=== PATIENT | female | born 1935 | race Caucasian/White ===

== ENCOUNTER → 2017-06-18 | Outpatient (CLI) | payer OTHER ==
[~2017-06-18] MED LIST: 'zithromax250 MG PO; ABILIFY5 MG PO; ACYCLOVIR400 MG PO; ADVAIR 100/501 E1 INH; ADVAIR 250/501 EA INH; ADVAIR 500/501 E1 INH; ADVAIR DISKUS 21 DSK IH; ALPHA LIPOIC A200 MG PO; ALPRAZOLAM0.5 MG PO; AMBIEN; AMBIEN10 M1 PO; AMBIEN5 MG PO; APA PO; ARICEPT10 MG PO; ARICEPT5 MG PO; ATENOLOL25 MG PO; ATIVAN0.5 MG PO; AVAPRO300 MG PO; AZITHROMYCIN500 MG PO; BACTRIM DS 8001 TA1 PO; BACTROBAN2% TP; CARDIZEM CD240 MG PO; CARDIZEM LA240 MG PO; CARTIA XT240 MG PO; CEFTRIAXON1 GM/50 ML IV; CELEBREX200 MG; CELEBREX200 MG PO; CIPRO500 MG PO; CIPROFLOXACIN500 MG PO; CLARITIN10 MG PO; CLONIDINE0.1 MG PO; COLACE100 MG PO; COREG25 MG PO; CYMBALTA30 MG PO; CYMBALTA60 MG PO; DARVOCET N 1001 TAB PO; DAYPRO600 M1 PO; DELTASONE10 MG PO; DELTASONE5 MG PO; DESYREL100 MG PO; DILTIAZEM HYDR180 M2 PO; DONEPEZIL HYDRO10 MG PO; DUONEB 3 MG/3 ML3 M1; DUONEB 3 MG/3 ML3 M1 INH; Duoneb 3ML 3 MG/3 ML INH; FIORICET 325 MG1 TAB; FIORICET 325 MG1 TAB PO; FISH OIL 10001000 MG PO; FLEET ADULT ENEM1 EA R; FLONASE 0.05% 121 EA NAS; FUROSEMIDE40 MG PO; HCA STOOL SOFT100 MG PO; HYDROCHLOROTH12.5 M2 PO; HYDROCODONE BIT1 T11 PO; HYDROCODONE PO; IMITREX50 MG PO; K-Dur 20MEQ20 MEQ PO; K-POTASSIUM CH20 MEQ PO; KCL PO; KLONOPIN0.5 MG PO; KLOR-CON 1010 MEQ PO; LACTULOSE10 GM/15 M PO; LASIX20 MG PO; LEVAQUIN 500 M500 M1 PO; LISINOPRIL/HCTZ1 TA3 PO; LISINOPRIL20 MG PO; LISINOPRIL5 MG PO; LOVENOX30 MG/0.3 SC; Lovenox40 MG/0.4 SC; MAXIPIME1 GM IV; MELOXICAM15 MG PO; METHYLPREDNI40 MG/M1 IV; MILK OF MA400 MG/52 PO; MIRALAX17 GM/PACK; MIRALAX17 GM/PACK PO; MOBIC15 MG PO; MUCINEX D 600 M1 TE1 PO; MUCINEX DM 30/61 TAB PO; MUCINEX600 MG PO; MULTI-VITAMINS1 TA1 PO; Medrol Dosepak4 MG PO; NASONEX0.05 MG/AC NS; NORVASC5 MG PO; OCEAN NASAL SPR45 ML NAS; OMEPRAZOLE20 MG PO; POTASSIUM CHLO20 ME3 PO; PREDNISONE10 MG PO; PREDNISONE5 MG; PRILOSEC20 M2 PO; PRILOSEC20 MG PO; PRILOSEC40 MG PO; PRINIVIL20 MG PO; PROAIR HFA8.5 GM IH; PT DOESN'T KNOW MEDS; SINEMET 10-1001 TAB PO; SINGULAIR10 M1 PO; SINGULAIR10 MG PO; SOLU-MEDROL40 MG IV; SPIRIVA -- 3018 MCG INH; SYMBICORT1 AE1 INH; SYNTHROID,LEVO75 MCG PO; SYNTHROID,LEVO88 MCG PO; SYNTHROID0.075 MG PO; SYNTHROID0.1 MG PO; TEMAZEPAM15 MG PO; TRAMADOL50 MG PO; TRAZODONE150 MG PO; TRAZODONE50 MG PO; TYLENOL PO; TYLENOL325 M1 PO; TYLENOL325 M2 PO; TYLENOL650 M1 PO; VICODIN 5/500 505 MG PO; VISTARIL25 M2 PO; VITAMIN D32000 I1 PO; VITAMIN D50000 I1 PO; Vicodin 5/500 505 MG PO; XANAX XR0.5 MG PO; XANAX0.5 MG PO; ZESTRIL10 MG PO; ZESTRIL30 MG; ZITHROMAX Z PA250 MG PO; ZITHROMAX250 MG PO; ZOFRAN4 MG PO; ZOLOFT25 MG PO; [UNRECOGNIZED DRUG - OTHER] PO; [UNRECOGNIZED DRUG - OTHER] PO
== END | disposition home or self-care (01) ==
LOC: MRI 09:57
DX: M41.86 Other forms of scoliosis, lumbar region (principal); M48.07 Spinal stenosis, lumbosacral region; M51.26 Other intervertebral disc displacement, lumbar region; I10 Essential (primary) hypertension; M81.8 Other osteoporosis without current pathological fracture; F03.90 Unspecified dementia, unspecified severity, without behavioral disturbance, psychotic disturbance, mood disturbance, and anxiety; M19.90 Unspecified osteoarthritis, unspecified site

== ENCOUNTER 2017-10-29 10:10 | Inpatient (IN) | payer OTHER ==
[~2017-10-29] VITALS: Ht 157.4 cm; Wt 83.0 kg
--- NOTE | ~2017-10-29 | PR ---
[place], [place] PROGRESS NOTE [id number] UN[facility] #: [id number] ROOM: 404 DOCTOR: DK MUSA MD,JEANA BIRTHDATE: [birth year] DOS: 11/03/2017 SUBJECTIVE: She has been noted comfortable at this time, resting in the bed this morning of assessment. Shortness of breath has been noted gradually decreased. She was continued the corticosteroid as 40 mg q. 8 hours. The shortness of breath, wheezing continued to resolve progressively. Denies symptoms of chest pain. OBJECTIVE: VITAL SIGNS: For the patient which has been recorded shows the temperature noted as normal temperature, respiratory rate 20, heart rate 74, blood pressure 144/82. The pulse oxygen saturation on room air 97% saturation. HEENT: No acute change. NECK: Supple. CARDIOVASCULAR: S1, S2 audible. LUNGS: The patient noted without any wheezing or crackles at this time. Breaths are noted mildly diminished bilaterally. ABDOMEN: Soft, nontender. LABORATORY DATA: Culture of the sputum pending. IMPRESSION: The patient who has been currently noted with gradual reduction and improvement in the respiratory symptom. The patient with progressive improvement in acute exacerbation of chronic obstructive pulmonary disease and acute bronchitis was continued. PLAN OF TREATMENT: Continue the patient's current plan of therapy. The patient at this time without any changes. Usual care, ordered supportive plan of therapy and care. Usual medical management. JEANA ROOT MD CM:PNTRANS [id number] JEANA MUSA MD 11/03/17 1759 interface
--- NOTE | ~2017-10-29 | WRIGHTHP ---
[place], [place] PATIENT HISTORY AND PHYSICAL EXAM NAME: ABILIO DISLA [facility] #: [id number] UNIT #: [id number] ROOM: 404 DOCTOR: OLEG CISNEROS MD BIRTHDATE: [birth year] DOS: 10/29/2017 HISTORY OF PRESENT ILLNESS: The patient is an 82-year-old female with a past medical history of: 1. COPD. 2. Late onset Alzheimer's type dementia. 3. Hypertension. 4. Hypothyroidism. 5. GERD and esophagitis. 6. Generalized anxiety disorder. The patient presented to the Emergency Department at [facility] with increasing shortness of breath, cough and purulent sputum for about a week. The patient was diagnosed as having acute exacerbation of COPD along with acute kidney injury and recommended for admission and further management. After admission, the patient is still complaining of shortness of breath and some wheezing. No chest pain. No dizziness or fainting episode. No other GI or urinary symptoms. REVIEW OF SYSTEMS: LUNGS: Increased shortness of breath, wheezing. GASTROINTESTINAL: No nausea, vomiting, diarrhea or constipation. CARDIOVASCULAR: No chest pains or palpitations. FAMILY HISTORY: Noncontributory. SOCIAL HISTORY: Denies smoking cigarettes, alcohol and drug abuse. ALLERGIES: Known allergies to AZITHROMYCIN. PHYSICAL EXAMINATION: GENERAL: Alert, oriented to place and person, not a good historian. VITAL SIGNS: Blood pressure 165/80, heart rate 64 beats per minute, breathing 16 times per minute, temperature 99 degrees Fahrenheit. HEENT AND NECK: Extraocular movements are intact. Sclerae are anicteric. Oral mucosa is moist and clean. No obvious facial weakness. Neck is supple without any lymphadenopathy. No thyromegaly. No JVD. No carotid arterial bruits. LUNGS: Expiratory wheezing on lung auscultation. CARDIOVASCULAR SYSTEM: Heart rate is regular in rate and rhythm. S1 and S2 normally audible. No significant murmur or any other abnormal cardiac sounds. ABDOMEN: Soft, nontender. No obvious organomegaly. Bowel sounds are present. No obvious herniation. EXTREMITIES: Without significant cyanosis or edema. Warm to touch. CENTRAL NERVOUS SYSTEM: Alert and oriented x 3. Cranial nerves II-XII are intact. Speech is normal. The patient is able to move all extremities. Normal muscle strength. Deep tendon reflexes are equal on both sides. Plantars were downgoing. LABORATORY DATA: Normal serum electrolytes. Blood sugar 149. Hemoglobin 9, otherwise normal CBC, normal platelets. Normal bilirubin, liver enzymes. Chest [place], [place] PATIENT HISTORY AND PHYSICAL EXAM NAME: ABILIO DISLA [facility] #: [id number] UNIT #: [id number] ROOM: [facility] DOCTOR: OLEG CISNEROS MD BIRTHDATE: [birth year] x-ray is showing COPD. IMPRESSION: 1. The patient with acute exacerbation of significant underlying chronic obstructive pulmonary disease, to be treated with antibiotics, oxygen, corticosteroids and followed closely. The patient is on oxygen and being monitored. 2. Hemoglobin of 10.6 with anemia of chronic disease. No leukocytosis. 3. Generalized anxiety disorder, to be treated and controlled. 4. Late onset Alzheimer's type dementia, mental status has been stable. 5. Benign essential hypertension. Blood pressure is to be monitored, treated and followed. 6. Hypothyroidism, to be treated with thyroid supplements. 7. Advance disability and adult failure to thrive with ambulatory dysfunction. The patient to work with Physical Therapy and we will take bedsore precautions, use air mattress and every 2 hour turning. OLEG CISNEROS MD CM:HISPHYS:PATIENT HISTORY AND PHYSICAL EXAMINATION 19 [phone] OLEG CISNEROS MD 10/30/17 183 interface
--- NOTE | ~2017-10-29 | CON ---
[place], [place] REPORT OF CONSULTATION [id number] UNIT #: [id number] ROOM: 404 DOCTOR: JÚNIOR WHITLOCK MD BIRTHDATE: [birth year] DOS: 11/02/2017 HISTORY OF PRESENT ILLNESS: This is an 82-year-old -[place] woman who has mild dementia, COPD, although she only smokes sparingly, essential hypertension. The left ventricle hypertrophy by an echocardiogram, TIA, hypothyroidism, and some anxiety disorder. She was admitted to the hospital about 4 days ago because of increasing shortness of breath. She had been coughing up purulent sputum. She had some chest pain with cough, but no fever or chills. She was very short of breath and the breathing has improved markedly since admission. She claims she had swelling in the legs and no PND, orthopnea, or loss of consciousness. CURRENT MEDICATIONS: Include bronchodilator therapy, lisinopril, hydrochlorothiazide, Cardizem-CD 180, Synthroid, trazodone, atenolol, Solu-Medrol, and lisinopril. PHYSICAL EXAMINATION: GENERAL: This patient is morbidly obese, lying in bed, very comfortable. She is not tachypneic and there is no thyromegaly or finger clubbing. VITAL SIGNS: Pulse is irregular at 80 beats per minute, blood pressure 173/84, blood pressure has been modestly elevated since admission. NECK: JVP is normal. AJR is negative. No bruit in the neck. HEART: There is no cardiomegaly, no murmurs are present. EXTREMITIES: Good pedal pulses and no pitting edema of the lower extremities. RESPIRATORY: Breath sounds are fairly decent bilaterally with very little adventitious sounds. ABDOMEN: No bruits. Bowel sounds are normal. There is no organomegaly or pulsatile mass. LABORATORY DATA: An ECG showed normal sinus rhythm and essentially a normal pattern. She had an echocardiogram in December of last year read by Dr. Acevedo. I read an echo on her in July 2011. She had mild to moderate LVH, normal LV systolic function. Chest x-ray demonstrates COPD changes, but no pulmonary edema or pneumonia. She had 7 beat monomorphic ventricular tachycardia at a rate of about 140 beats per minute and no recurrence has occurred. Her potassium was fine. She had an echocardiogram that had shown normal wall motion last year. I do not suspect any serious underlying etiology for this nonsustained monomorphic ventricular tachycardia. Further workup is not recommended. She had an echocardiogram today and I will review that. IMPRESSION: 1. This patient has hypertension, which is not adequately controlled. 2. She had COPD exacerbation due to acute chest infection, which has improved significantly. [place], [place] REPORT OF CONSULTATION NAME: ABILIO DISLA UNIT #: [id number] ROOM: 404 DOCTOR: JÚNIOR WHITLOCK MD BIRTHDATE: [birth year] 3. There is no clinical or radiographic evidence of heart failure. PLAN: My recommendation would be to discontinue atenolol since she is on a fair amount of Cardizem dose, dose of LIZ inhibitor can be increased. I thank you on behalf of Dr. Murdock for this consult. JÚNIOR WHITLOCK MD CM:CONSTR:REPORT OF CONSULTATION 1812 11/03/17 0336 interface
--- NOTE | ~2017-10-29 | PR ---
[place], [place] PROGRESS NOTE NAME: ABILIO DISLA [facility] #: [id number] UNIT #: [id number] ROOM: 404 DOCTOR: DK MUSA MD,JEANA BIRTHDATE: [birth year] DOS: 11/02/2017 SUBJECTIVE: She has been noted reduction in respiratory symptom, coughing, wheezing from the last have progressed. The patient's steroid dose was increased. She has been noted symptoms of shortness of breath, which is still present, not completely resolved but decreased. She denies symptoms of abdominal pain. Denies symptoms of nausea, vomiting, diarrhea or any abdominal pain. OBJECTIVE: VITAL SIGNS: Recorded shows the temperature noted as normal, respiratory rate 18, heart rate of 65 to 110, blood pressure 116/46 to 118/78. Pulse oxygen saturation on 2 liters nasal cannula 96% saturation. HEENT: Shows no acute change. NECK: Supple. CARDIOVASCULAR: S1 and S2 audible. LUNGS: Noted without any crackles. Mild expiratory wheezing with significant improvement noted from yesterday. ABDOMEN: Soft, nontender, bowel sounds present. CENTRAL NERVOUS SYSTEM: Noted without any gross focal deficit. IMPRESSION: Resolving acute exacerbation of chronic obstructive pulmonary disease with acute tracheobronchitis with current plan of treatment. PLAN OF TREATMENT: The patient was planned for discharge to the correction. The patient required high dose of steroids and an antibiotic as well as bronchodilators every 4 hours. Other supportive therapy, plan of management continue, usual care. JEANA ROOT MD CM:PNKEN [id number] JEANA MUSA MD 11/02/17 2327 interface
--- NOTE | ~2017-10-29 | PR ---
[place], [place] PROGRESS NOTE NAME: ABILIO DISLA UNIT #: [id number] ROOM: 404 DOCTOR: OLEG CISNEROS MD BIRTHDATE: [birth year] DOS: SUBJECTIVE: The patient still continues to complain of shortness of breath. PHYSICAL EXAMINATION: VITAL SIGNS: Blood pressure 147/75, heart rate of 68 beats per minute, breathing 18 times per minute, afebrile. GENERAL APPEARANCE: The patient is alert and oriented x 3, in no visible distress, except for obesity, generalized weakness. HEENT AND NECK: Exam within normal limits. CARDIOVASCULAR SYSTEM: Heart rate is regular in rate and rhythm. S1 and S2 normally audible. LUNGS: Expiratory wheezing on lung auscultation. ABDOMEN: Soft, nontender. No obvious organomegaly. Bowel sounds are present. EXTREMITIES: Without significant cyanosis or edema. IMPRESSION AND PLAN: 1. The patient with acute exacerbation of significant underlying chronic obstructive pulmonary disease with little improvement with treatment. The patient to be continued on oxygen and bronchodilators and I am consulting Dr. Blandon, the laborer car [employer] to evaluate her and help with management. 2. Generalized anxiety disorder, being treated and followed. 3. Late onset Alzheimer's type dementia, mental status stable. 4. Benign essential hypertension. Blood pressure being monitored, treated and controlled. 5. Advance disability and adult failure to thrive with ambulatory dysfunction. The patient is working with Physical Therapy. We are also taking bedsore precautions and turning her every 2 hours and using an air mattress. 6. Hypothyroidism, treated with thyroid supplements. OLEG CISNEROS MD CM:PNTRANS [phone] OLEG CISNEROS MD 10/31/172156 interface
--- NOTE | ~2017-10-29 | DS ---
[place], [place] DISCHARGE SUMMARY [id number] #: [id number] ROOM: 404 DOCTOR: OLEG CISNEROS MD BIRTHDATE: [birth year] DOS: 11/03/2017 DISCHARGE DIAGNOSES: 1. Acute exacerbation of significant underlying chronic obstructive pulmonary disease and acute tracheobronchitis, improved with treatment. 2. A ____ beat run of ventricular tachycardia, evaluated by compensation and benefits administrator, Dr. Mendez. 3. Benign essential hypertension. 4. Advanced adult failure to thrive. 5. Hypokalemia, resolved with extra potassium supplements. 6. Hypothyroidism. 7. Late onset Alzheimer's type dementia. 8. Generalized anxiety disorder. 9. Chronic obstructive pulmonary disease. 10. Gastroesophageal reflux disease and esophagitis. 11. Hypertension. The patient was admitted for increased shortness of breath, cough with purulent sputum for about a week at the skilled nursing. The patient was found to have acute exacerbation of COPD and she was admitted and treated with antibiotics, corticosteroids, oxygen, breathing treatments and her breathing improved gradually. Dr. Blandon, the council on aging director, was also consulted since she had very slow improvement in her breathing. The patient appears to have achieved maximal benefit from this admission and will be discharged back to skilled nursing today. The patient had a ____ beat run of monomorphic V-tach, which was evaluated by compensation and benefits administrator and no further workup was recommended. Advance disability and adult failure to thrive. The patient worked with Physical Therapy. Late onset Alzheimer's type dementia, remained stable. Hypothyroidism, treated with thyroid supplements. Anemia of chronic disease. Hypokalemia, treated with extra potassium supplements. LABORATORY DATA: Normal serum electrolytes. Sputum cultures are pending. Blood cultures were negative. DISCHARGE MANAGEMENT: Prednisone 5 mg a day, lisinopril 20 mg daily, DuoNeb every 4 hours as needed, Pulmicort 0.5 mg b.i.d., Singulair 10 mg daily, loratadine 10 mg daily, potassium chloride 20 mEq daily, Zoloft 50 mg a day, hydrochlorothiazide 12.5 mg daily, Colace 200 mg b.i.d., diltiazem CD 180 mg daily, levothyroxine 100 mcg daily, trazodone 100 mg at bedtime, atenolol 25 mg b.i.d., doxycycline 100 mg b.i.d. for 5 days, then to be stopped, buspirone 5 mg every 8 hours, Medrol Dosepak. [place], [place] DISCHARGE SUMMARY NAME: ABILIO DISLA UNIT #: [id number] ROOM: [facility] DOCTOR: OLEG CISNEROS MD BIRTHDATE: [birth year] OLEG CISNEROS MD CM:DISCHARG [id number] OLEG CISNEROS MD 11/05/17 1543 interface
--- NOTE | ~2017-10-29 | PR ---
[place], [place] PROGRESS NOTE NAME: ABILIO DISLA [facility] #: [id number] UNIT #: [id number] ROOM: 404 DOCTOR: SHRUTHI EPPS MD BIRTHDATE: [birth year] DOS: SUBJECTIVE: The patient is not having any new complaints. She feels better. OBJECTIVE: VITAL SIGNS: Blood pressure is 168/80, pulse of 76, respirations 20, temperature 97.6. LUNGS: Clear. HEART: Regular. ABDOMEN: Obese. EXTREMITIES: Without any edema. LABORATORY DATA: BMP; glucose 162, BUN 18, creatinine 0.2, magnesium 2.1, potassium 3.9. Blood culture shows no bacterial growth. ASSESSMENT AND PLAN: 1. Acute exacerbation of chronic obstructive pulmonary disease. The patient is placed on IV steroids and antibiotics. Steroid dosage is increased and DuoNeb and Pulmicort was added. This seems to have helped the patient. The bronchospasm seems to be resolving. 2. Failure to thrive, adult. The patient lives in a intermediate. The plan is to discharge her back. 3. Possible sepsis, which has been ruled out with negative cultures. 4. A 7 beat run of V-tach during the night. Magnesium and potassium levels were normal. We will get a cardiology consultation. She had an echocardiogram in 2015 which showed concentric LVH and diastolic dysfunction. 5. Benign hypertension, not very well controlled. We will go ahead and arrange for better adjustments in medications as well as a consultation with cardiology. SHRUTHI EPPS MD CM:PNTRANS [phone] SHRUTHI EPPS MD 11/02/17 1020 interface
--- NOTE | ~2017-10-29 | CON ---
[place], [place] REPORT OF CONSULTATION NAME: ABILIO DISLA UNIT #: [id number] ROOM: 404 DOCTOR: JÚNIOR WHITLOCK MD BIRTHDATE: [birth year] DOS: ADDENDUM She had 7 beat monomorphic ventricular tachycardia at a rate of about 140 beats per minute and no recurrence has occurred. Her potassium was fine. She had an echocardiogram that had shown normal wall motion last year. I do not suspect any serious underlying etiology for this nonsustained monomorphic ventricular tachycardia. Further workup is not recommended. She had an echocardiogram today and I will review that. JÚNIOR WHITLOCK MD CM:CONSTR:REPORT OF CONSULTATION 1816 11/03/17 0025 interface
--- NOTE | ~2017-10-29 | PR ---
[place], [place] PROGRESS NOTE NAME: ABILIO DISLA [facility] #: [id number] UNIT #: [id number] ROOM: 404 DOCTOR: SHRUTHI EPPS MD BIRTHDATE: [birth year] DOS: 11/01/2017 SUBJECTIVE: The patient has significant audible wheezing. She is able to communicate well, but appears to be in some mild respiratory distress. OBJECTIVE EXAMINATION: GENERAL: She is awake and alert and oriented. VITAL SIGNS: Blood pressure is 182/77, pulse of 55, respirations 18, temperature 97.5. LUNGS: Diminished breath sounds, scattered wheezes and rhonchi. HEART: Regular. ABDOMEN: Obese. EXTREMITIES: Without any edema. ASSESSMENT AND PLAN: 1. Acute exacerbation of chronic obstructive pulmonary disease. The patient is on IV steroids. We will increase the dose of steroids and add Pulmicort, discontinue IV fluids. 2. Hypokalemia. Supplementation has been ordered. 3. Acute tracheobronchitis with significant bronchospasm. Already on Rocephin. Dr. Blandon has been consulted for possible bronchoscopy. SHRUTHI EPPS MD CM:PNTRANS [phone] SHRUTHI EPPS MD 11/01/17 0850 interface
--- NOTE | ~2017-10-29 | CON ---
[place], [place] REPORT OF CONSULTATION NAME: [facility]ILIO DISLA [facility]: [id number] UNIT #: [id number] ROOM: 404 DOCTOR: JEANA RAY MD BIRTHDATE: [birth year] DOS: 11/01/2017 PULMONARY CONSULTATION AND EVALUATION NOTE CONSULTATION REQUESTED BY: by Dr. Buckley. REASON FOR CONSULTATION: To assess the patient for ongoing acute respiratory complaints with coughing, wheezing, and exacerbation of COPD. HISTORY OF PRESENT ILLNESS: This is an 82-year-old elderly female with history of dementia, COPD, who currently stays at [facility], long-term resident. The patient developed symptoms of having increased shortness of breath, coughing, sputum expectoration, and others. The patient has been treated at the [facility] with the medication by Dr. Buckley, but not responded to the treatment. She has been sent to the hospital for further hospitalization because of the failed outpatient treatment. The patient's history was not noted very accurate because of the history of dementia; however, the patient is complaining of having severe coughing, chest congestion with some sputum expectoration at times. Most of the time, the patient was noted with no sputum expectoration. She was noted with excessive wheezing with tightness in the chest as well as shortness of breath with exertion. The shortness of breath is described at rest as well. Denies symptoms of hemoptysis. REVIEW OF SYSTEMS: Not very accurate; however, some of the symptom review of the patient were noted as: CONSTITUTIONAL: Fatigue and tiredness. There were no symptoms of fever or chills. Denies any changes in appetite. EYES: Denies any burning, redness in the eyes, or dryness. THROAT: Denies sore throat, hoarseness, otalgia, postnasal drainage, or epistaxis. CARDIOVASCULAR: Denies any palpitations, angina pain, edema, or pain of the lower extremities. GASTROINTESTINAL: Denies nausea, vomiting, diarrhea, abdominal pain, hematemesis, melena, or hematochezia. MUSCULOSKELETAL: Denies any abnormal skin rashes or lesions. CENTRAL NERVOUS SYSTEM: Denies any symptoms of arthralgia for this patient or deformity. Denies any symptoms of seizures. Remaining systems were also reviewed for the patient, they were noted essentially negative. PAST MEDICAL HISTORY: The patient was noted with: 1. History of chronic obstructive pulmonary disease. 2. Essential hypertension. 3. General anxiety disorder. 4. TIA. 5. Hypothyroidism. 6. Gastroesophageal reflux. 7. Osteoarthritis. 8. Osteoporosis. 9. History of Alzheimer dementia. [place], [place] REPORT OF CONSULTATION NAME: ABILIO DISLA UNIT #: [id number] ROOM: 404 DOCTOR: DK MUSA MD,JEANA BIRTHDATE: [birth year] PAST SURGICAL HISTORY: 1. Colonoscopy. 2. . 3. Tubal ligation. 4. T and A. 5. Therapeutic bronchoscopies, the last bronchoscopy was done in 2016. SOCIAL HISTORY: Currently a long-term resident of nursing facility. She was noted with tobacco use in the past for some time, but not smoking cigarettes for several years. The patient is and has 2 children. FAMILY HISTORY: The patient's father at age 84 years due to complication of Alzheimer disease and COPD, History about the mother was unknown. MEDICATIONS: The current administered medications noted with use of DuoNeb q.4h., Pulmicort Respules 0.5 mg b.i.d., Singulair 10 mg p.o. daily, loratadine 10 mg daily, potassium chloride 20 mEq, sertraline 50 mg daily, lisinopril 10 mg daily, hydrochlorothiazide 12.5 mg daily, Cardizem-CD 180 mg daily, Synthroid 100 mcg daily, trazodone 100 mg at bedtime, atenolol 25 mg b.i.d., Solu-Medrol 30 mg b.i.d., IV Rocephin, and other p.r.n. medication administration. DRUG ALLERGIES: NOTED ALLERGY TO AZITHROMYCIN. PHYSICAL EXAMINATION: GENERAL: This is an 82-year-old white female, currently noted without any distress with obvious wheezing, chest congestion was noted. Height of the patient recorded as 5 feet 2 inches, weight 183 pounds, BMI 33.5. VITAL SIGNS: Normal temperature since admission, respiratory rate 18-20, heart rate of 55-64, blood pressure of 182/77-171/79. Pulse oxygen saturation on room air was 92% saturation. HEENT: Head was atraumatic. Eyes nonicterus. NECK: Supple. CARDIOVASCULAR: S1, S2 audible. LUNGS: Shows moderate general reduction in breath sounds, diffuse expiratory wheezing without any crackles. ABDOMEN: Soft, nontender. Bowel sounds present. CENTRAL NERVOUS SYSTEM: Intact for the patient in general. SKIN: Visible skin, no lesions or rashes. MUSCULOSKELETAL: Without any acute deformities. LABORATORY DATA: The patient's CBC on 10/29/2017, on admission noted as hemoglobin 10.6, hematocrit 35.9, platelet count and WBC count normal. Lactic acid 2.1 on admission of the patient on 10/29/2017. BMP on 10/29/2017, BUN of 16, creatinine 1.05, glucose 112, remaining CMP was normal. Influenza A and B, nasal washing antigen negative on admission. Blood culture of the patient from 10/29/2017 showed no bacterial growth. BMP today noted normal BUN and creatinine. Potassium 3.1, mildly decreased. PT/PTT of the patient on 10/29/2017 was normal. [place], [place] REPORT OF CONSULTATION NAME: ABILIO DISLA UNIT #: [id number] ROOM: [facility] DOCTOR: JEANA RAY MD BIRTHDATE: [birth year] IMAGING STUDIES: Chest x-ray, 1 view done in the Emergency Room for the patient on 10/29/2017 noted with changes of COPD, hyperinflation, without any acute pulmonary infiltration. IMPRESSION: 1. The patient who has been admitted to the hospital currently noted with persistent acute exacerbation of chronic obstructive pulmonary disease with chest congestion, nonproductive cough, and wheezing. 2. History of Alzheimer dementia as well. 3. History of hypothyroidism. 4. History of essential hypertension and transient ischemic attack and other medical illnesses. PLAN OF MANAGEMENT: Changing the Solu-Medrol dose of the patient to 40 mg b.i.d., higher dosing for the patient every 8 hours should be the first step. Assess the patient closely for response to current treatment in the next 24-48 hours. If the symptom remains persistent and does not resolve, certainly consider therapeutic bronchoscopy. Also ordered doxycycline and other medication to the regimen for this patient. The patient will be started on 100 mg of doxycycline b.i.d. as well. Sputum for Gram stain culture was ordered as well. Addition of 1200 mg of Mucinex b.i.d. as well. Use of the flutter valve as well. Additional treatment changes will be made based on the progression of the illness. Supportive plan of management and other care. Thanks for allowing me to participate in the care of this patient. JEANA ROOT MD CM:CONSTR:REPORT OF CONSULTATION 1303 11/02/17 0053 interface
[2017-10-29 10:22] VITALS: BP 115/62
[2017-10-29 10:43] LABS: BASO % 0.5 % (0.0-1.0); EOS % 0.3 % (1.0-4.0); HEMATOCRIT 35.9 % (37.0-47.0); HEMOGLOBIN 10.6 g/dl (12.0-16.0); LYMPH # 1.1 10*3/uL (1.3-4.4); MEAN CELL VOLUME 71.9 fl (81.0-99.0); MEAN CORPUSCULAR HGB 21.2 pg (27.0-31.0); MEAN CORPUSCULAR HGB CONC 29.5 g/dl (33.0-37.0); MEAN PLATELET VOLUME 9.6 fl (9.6-12.3); MONO # 0.9 10*3/uL (0.1-1.0); MONO % 11.8 % (3.0-9.0); NEUT # 5.5 10*3/uL (2.3-7.9); PLATELET COUNT AUTOMATED 284 10*3/uL (130-400); RED BLOOD COUNT 4.99 10*6/uL (4.10-5.10); RED CELL DISTRI WIDTH 17.2 % (0-14.5); WHITE BLOOD COUNT 7.6 10*3/uL (4.8-10.8)
[2017-10-29 10:52] LABS: ACT PARTIAL THROMBO TIME 23.8 SECONDS (20.8-31.5)
[2017-10-29 10:58] LABS: ALBUMIN 3.4 gm/dl (3.1-4.5); ALKALINE PHOSPHATASE 64 U/L (45-117); BUN 16 mg/dl (7-24); CHLORIDE 106 mmol/L (98-107); CREATININE 1.05 mg/dL (0.55-1.02); POTASSIUM 3.7 mmol/L (3.5-5.1); SGOT/AST 21 IU/L (3-35); SGPT/ALT 18 U/L (12-78); SODIUM 140 mmol/L (136-145); TOTAL PROTEIN 7.2 gm/dL (6.4-8.2)
[2017-10-29 11:00] LABS: TROPONIN I < 0.015 ng/ml (<0.045)
[2017-10-29 11:15] VITALS: BP 108/51
[2017-10-29 12:16] VITALS: BP 103/61
[2017-10-29 12:19] VITALS: BP 108/51
[2017-10-29] MEDS ORDERED: BUSPAR5 MG PO (13:25)
[2017-10-29] MEDS ORDERED: FLONASE ALLERG9.9 ML NAS (13:28)
[2017-10-29] MEDS ORDERED: HYDR12.5C PO (13:31)
[2017-10-29] MEDS ORDERED: PRINIVIL10 MG PO (13:32)
[2017-10-29] MEDS ORDERED: PREDNISONE5 MG PO (13:34)
[2017-10-29] MEDS ORDERED: TRAZODONE100 MG PO (13:35)
[2017-10-29] MEDS ORDERED: ANORO ELLIPTA1 EACH INH (13:38)
[2017-10-29] MEDS ORDERED: PROAIR HFA8.5 GM INH (13:41)
[2017-10-29 15:56] VITALS: BP 129/76
[2017-10-29 20:00] VITALS: BP 116/84
[2017-10-30] VITALS: BP 135/85
[2017-10-30 06:40] LABS: BASO % 0.2 % (0.0-1.0); HEMATOCRIT 30.3 % (37.0-47.0); LYMPH # 0.7 10*3/uL (1.3-4.4); LYMPH % 11.6 % (27.0-41.0); MEAN CELL VOLUME 71.5 fl (81.0-99.0); MEAN CORPUSCULAR HGB 21.2 pg (27.0-31.0); MEAN CORPUSCULAR HGB CONC 29.7 g/dl (33.0-37.0); MEAN PLATELET VOLUME 10.3 fl (9.6-12.3); MONO # 0.3 10*3/uL (0.1-1.0); MONO % 5.8 % (3.0-9.0); NEUT # 4.8 10*3/uL (2.3-7.9); NEUT % 82.1 % (47.0-73.0); PLATELET COUNT AUTOMATED 244 10*3/uL (130-400); RED BLOOD COUNT 4.24 10*6/uL (4.10-5.10); RED CELL DISTRI WIDTH 17.1 % (0-14.5); WHITE BLOOD COUNT 5.9 10*3/uL (4.8-10.8)
[2017-10-30 06:57] LABS: BUN 18 mg/dl (7-24); CHLORIDE 111 mmol/L (98-107); CREATININE 0.76 mg/dL (0.55-1.02); POTASSIUM 3.5 mmol/L (3.5-5.1); SODIUM 142 mmol/L (136-145)
[2017-10-30 08:00] VITALS: BP 147/75
[2017-10-30 12:00] VITALS: BP 170/86
[2017-10-30 16:00] VITALS: BP 165/80
[2017-10-30 20:00] VITALS: BP 100/80
[2017-10-31] VITALS: BP 152/72
[2017-10-31 07:30] LABS: BUN 18 mg/dl (7-24); CHLORIDE 110 mmol/L (98-107); CREATININE 0.81 mg/dL (0.55-1.02); POTASSIUM 3.6 mmol/L (3.5-5.1); SODIUM 143 mmol/L (136-145)
[2017-10-31 08:00] VITALS: BP 147/75
[2017-10-31 12:00] VITALS: BP 155/79
[2017-10-31 16:00] VITALS: BP 171/79
[2017-10-31 20:00] VITALS: BP 153/88
[2017-11-01] VITALS: BP 159/83
[2017-11-01 07:50] LABS: BUN 16 mg/dl (7-24); CHLORIDE 109 mmol/L (98-107); CREATININE 0.78 mg/dL (0.55-1.02); POTASSIUM 3.1 mmol/L (3.5-5.1); SODIUM 144 mmol/L (136-145)
[2017-11-01 08:00] VITALS: BP 182/77
[2017-11-01 12:00] VITALS: BP 162/82
[2017-11-01 16:00] VITALS: BP 151/74
[2017-11-01 20:00] VITALS: BP 158/79
[2017-11-02] VITALS: BP 156/86
[2017-11-02 05:36] LABS: BUN 18 mg/dl (7-24); CHLORIDE 108 mmol/L (98-107); CREATININE 0.82 mg/dL (0.55-1.02); POTASSIUM 3.9 mmol/L (3.5-5.1); SODIUM 143 mmol/L (136-145)
[2017-11-02 08:00] VITALS: BP 168/80
[2017-11-02 12:00] VITALS: BP 144/80
[2017-11-02 16:00] VITALS: BP 173/81
[2017-11-02 20:00] VITALS: BP 179/81
[2017-11-03 00:14] VITALS: BP 145/88
[2017-11-03 08:00] VITALS: BP 144/82
[2017-11-03 12:00] VITALS: BP 147/93
[2017-11-03 16:00] VITALS: BP 157/93
== END 2017-11-03 19:10 | disposition home or self-care (01) | DRG 191 ==
LOC: ED 10:10 → EDHOLD 11:38 → 4E 11:38
PROVIDERS: Internal Medicine; Nurse Practitioner Family
DX: J44.0 Chronic obstructive pulmonary disease with (acute) lower respiratory infection (principal); N17.9 Acute kidney failure, unspecified; G30.1 Alzheimer's disease with late onset; D63.8 Anemia in other chronic diseases classified elsewhere; F02.80 Dementia in other diseases classified elsewhere, unspecified severity, without behavioral disturbance, psychotic disturbance, mood disturbance, and anxiety; J44.1 Chronic obstructive pulmonary disease with (acute) exacerbation; E03.9 Hypothyroidism, unspecified; E87.6 Hypokalemia; M19.90 Unspecified osteoarthritis, unspecified site; M81.0 Age-related osteoporosis without current pathological fracture; K59.09 Other constipation; K21.9 Gastro-esophageal reflux disease without esophagitis; I10 Essential (primary) hypertension; E55.9 Vitamin D deficiency, unspecified; G47.00 Insomnia, unspecified; F41.1 Generalized anxiety disorder; R62.7 Adult failure to thrive; J22 Unspecified acute lower respiratory infection; E66.9 Obesity, unspecified; J20.9 Acute bronchitis, unspecified; Z88.1 Allergy status to other antibiotic agents; Z79.899 Other long term (current) drug therapy; Z87.440 Personal history of urinary (tract) infections; Z98.891 History of uterine scar from previous surgery; Z98.51 Tubal ligation status; Z90.710 Acquired absence of both cervix and uterus; Z87.891 Personal history of nicotine dependence; Z82.3 Family history of stroke; Z82.49 Family history of ischemic heart disease and other diseases of the circulatory system; Z83.6 Family history of other diseases of the respiratory system; Z86.73 Personal history of transient ischemic attack (TIA), and cerebral infarction without residual deficits; Z68.33 Body mass index [BMI] 33.0-33.9, adult

== ENCOUNTER → 2017-12-14 | Outpatient (CLI) | payer OTHER ==
[2017-12-14] VITALS (10 sets, daily range): BP systolic 102–158; BP diastolic 46–90
[~2017-12-14] MED LIST changes: +ANORO ELLIPTA1 EACH INH; +BUSPAR5 MG PO; +FLONASE ALLERG9.9 ML NAS; +HYDR12.5C PO; +PREDNISONE5 MG PO; +PRINIVIL10 MG PO; +PROAIR HFA8.5 GM INH; +TRAZODONE100 MG PO
[2017-12-14 13:49] LABS: HEMATOCRIT 27.4 % (37.0-47.0); HEMOGLOBIN 7.7 g/dl (12.0-16.0)
== END | disposition home or self-care (01) ==
LOC: TRNFUSION 13:13
PROVIDERS: Internal Medicine
DX: D64.9 Anemia, unspecified (principal); D72.829 Elevated white blood cell count, unspecified

== ENCOUNTER → 2018-01-14 | Day surgery (SDC) | payer OTHER ==
[~2018-01-14] VITALS: Wt 86.2 kg
[~2018-01-14] MED LIST changes: +BREO ELLIPTA 21 EACH INH; +DONEPEZIL HCL10 MG PO; +VITAMIN C500 M8 PO
--- NOTE | ~2018-01-14 | O ---
[place], [place] OPERATIVE NOTE NAME: ABILIO DISLA UNIT #: [id number] ROOM: DOCTOR: IWONA PEREZ MD BIRTHDATE: [birth year] DOS: GASTROENDOSCOPY REPORT HISTORY OF PRESENT ILLNESS: This is an 82-year-old patient who presented with chief complaint of rectal bleed. The concern about above. The patient resides in a group home. PAST MEDICAL HISTORY: Associated with hypertension and hypothyroidism. PAST SURGICAL HISTORY: and tonsillectomy. ALLERGIES: No known medication. FAMILY HISTORY: Noncontributory. SOCIAL HISTORY: Nonsmoker and nonalcohol consumer. PROCEDURE: Today's procedure part of investigation is colonoscopy, plus biopsy, plus piecemeal polypectomy. PREMEDICATION: Versed and propofol. SCOPE: Olympus WiWide colonoscope 10L video. REPORT: After putting the patient in left lateral position and application of lubricant to the scope, the scope was introduced. Thereafter, under direct visualization, passed through the length of colon without difficulty. At about proximal sigmoid colon hypertrophic fold, which is approximately 2 cm was biopsied and sessile polypoid lesion from splenic flexure with piecemeal polypectomy removed. Base of the cecum explored, appendiceal orifice identified, ileocecal valve was defined. Diverticulosis of sigmoid colon noticed. Air was suctioned out. The patient was extubated, tolerated procedure well. IMPRESSION: Hypertrophic fold at proximal sigmoid colon, status post biopsy. A sessile polypoid lesion and splenic flexure, status post piecemeal polypectomy, and diverticulosis of the sigmoid colon. PLAN AND DISCUSSION: Her rectal bleed, most likely has been secondary to a mucosal interruption. Therefore, a hemorrhoid Preparation-H suppository is recommended one-week in the row at bedtime and thereafter p.r.n. The patient is stable at this time. Thank you very much indeed for your kind referral. [place], [place] OPERATIVE NOTE NAME: ABILIO DISLA UNIT #: [id number] ROOM: DOCTOR: IWONA PEREZ MD BIRTHDATE: [birth year] NASROLLAH JAHDI, MD CM:OPRECORD:OPERATIVE NOTE [id number] [id number] OLEG PEREZ MD 01/14/18 1434 interface
[2018-01-14 12:45] VITALS: BP 132/75
[2018-01-14 14:03] VITALS: BP 159/77
[2018-01-14 14:18] VITALS: BP 140/82
[2018-01-14 14:33] VITALS: BP 127/85
== END | disposition home or self-care (01) ==
LOC: SDC 01-11 13:15
DX: D12.3 Benign neoplasm of transverse colon (principal); D12.5 Benign neoplasm of sigmoid colon; K57.30 Diverticulosis of large intestine without perforation or abscess without bleeding; I10 Essential (primary) hypertension; E03.9 Hypothyroidism, unspecified; Z98.890 Other specified postprocedural states; F41.9 Anxiety disorder, unspecified; F32.9 Major depressive disorder, single episode, unspecified; K21.9 Gastro-esophageal reflux disease without esophagitis; J43.9 Emphysema, unspecified; M19.90 Unspecified osteoarthritis, unspecified site; Z98.51 Tubal ligation status; Z90.710 Acquired absence of both cervix and uterus; Z82.49 Family history of ischemic heart disease and other diseases of the circulatory system

== ENCOUNTER 2018-06-14 04:34 | Inpatient (IN) | payer OTHER ==
[~2018-06-14] VITALS: Ht 157.4 cm; Wt 70.3 kg
[2018-06-14] VITALS (8 sets, daily range): BP systolic 114–159; BP diastolic 51–90
--- NOTE | ~2018-06-14 | DS ---
[place], [place] DISCHARGE SUMMARY NAME: ABILIO DISLA UNIT #: [id number] ROOM: 422 DOCTOR: OLEG CISNEROS MD BIRTHDATE: [birth year] DOS: 06/16/2018 DISCHARGE DIAGNOSES: 1. Urinary tract infection with resistant Escherichia coli, being treated with IV Zosyn. 2. Acute abdominal pain from a urinary tract infection and cystitis, resolved with treatment. 3. Advance adult failure to thrive. 4. Sepsis and leukocytosis with elevated lactic acid levels from urinary infection. 5. Generalized anxiety disorder. 6. Late onset Alzheimer's type dementia. 7. Benign essential hypertension. 8. Hypothyroidism. 9. Pollen allergies. 10. Chronic obstructive pulmonary disease. 11. Benign essential hypertension. 12. Hypothyroidism. 13. Chronic primary insomnia. 14. Gastroesophageal reflux disease and esophagitis. HOSPITAL COURSE: 1. The patient presented to [facility] for abdominal pains, feeling sick and had leukocytosis, lactic acidosis and was found to have resistant urinary tract infection and cystitis with resistant E. coli. The patient was treated with IV Zosyn, which will be [facility] The patient is feeling much better. 2. Generalized anxiety disorder, treated with Buspirone, reasonably controlled. 3. Late onset Alzheimer's type dementia, treated with Aricept and followed. 4. Benign essential hypertension, treated with diltiazem. Blood pressures are monitored and treated. 5. Hypothyroidism, treated with thyroid supplements, levothyroxine. 6. Pollen allergies treated and asymptomatic with Claritin. DISCHARGE MANAGEMENT: Continue IV Zosyn 2.25 grams every 6 hours for 4 more days [facility] jail, Tylenol p.r.n., loratadine 10 mg a day, lisinopril 10 mg a day, hydrochlorothiazide 12.5 mg a day, diltiazem CD 180 mg a day, levothyroxine 100 mcg daily, Aricept 10 mg a day, Colace 200 mg at bedtime, Buspirone 5 mg every 8 hours, Ambien 10 mg at bedtime. [place], [place] DISCHARGE SUMMARY NAME: ABILIO DISLA UNIT #: [id number] ROOM: 422 DOCTOR: OLEG CISNEROS MDDATE: [birth year] OLEG CISNEROS MD CM:LUCIA [id number] OLEG CISNEROS MD 06/16/181936 interface
--- NOTE | ~2018-06-14 | PR ---
[place], [place] PROGRESS NOTE NAME: ABILIO DISLA UNIT #: [id number] ROOM: 422 DOCTOR: OLEG CISNEROS MD BIRTHDATE: [birth year] DOS: 06/15/2018 SUBJECTIVE: The patient is feeling better. Abdominal pain is improving. OBJECTIVE: VITAL SIGNS: Blood pressure 132/98, heart rate of 88 beats per minute, breathing normally, afebrile. GENERAL APPEARANCE: The patient is alert and oriented x 3, in no visible distress. HEENT AND NECK: Exam within normal limits. CARDIOVASCULAR SYSTEM: Heart rate is regular in rate and rhythm. S1 and S2 normally audible. LUNGS: Clear to auscultation. ABDOMEN: Soft, nontender. No obvious organomegaly. Bowel sounds are present. EXTREMITIES: Without significant cyanosis or edema. IMPRESSION: 1. The patient with sepsis and leukocytosis with urinary tract infection and elevated lactic acid levels, are all improving. White cell count has normalized. Urine cultures growing heavy gram-negative bacilli and the patient is being treated with IV Zosyn. 2. Generalized anxiety disorder, treated with buspirone, pollen allergies asymptomatic with Claritin. 3. Hypothyroidism is being replaced with levothyroxine. 4. Benign essential hypertension, treated and controlled. The patient on diltiazem. 5. Late onset Alzheimer's-type dementia, being treated with Aricept. OLEG CISNEROS MD CM:PNTRANS [id number] OLEG CISNEROS MD 06/16/18 0011 interface
--- NOTE | ~2018-06-14 | WRIGHTHP ---
[place], [place] PATIENT HISTORY AND PHYSICAL EXAM NAME: ABILIO DISLA [facility] #: [id number] UNIT #: [id number] ROOM: 422 DOCTOR: OLEG CISNEROS MD BIRTHDATE: [birth year] DOS: 06/14/2018 HISTORY OF PRESENT ILLNESS: The patient is an 83-year-old female who resides at [facility] with a past medical history of COPD, benign essential hypertension, advanced adult failure to thrive, hypothyroidism, late onset Alzheimer's type dementia, generalized anxiety disorder, chronic primary insomnia, GERD and esophagitis, benign essential hypertension. The patient was sent over from assisted with complaints of abdominal pains, tiredness and fatigue. In the Emergency Department, the patient was evaluated. In the ER, the patient was suspected to have sepsis with elevation of lactic acid levels, leukocytosis with white cell count of 13,700 and a urinary infection. No chest pain, just patient is feeling fatigued. No dizziness or fainting episode. No other GI or urinary symptoms. SYSTEMS REVIEW: RESPIRATORY: No increasing shortness of breath or wheezing. GASTROINTESTINAL: The patient has abdominal pain. CARDIOVASCULAR: No chest pains or palpitations. FAMILY HISTORY: Noncontributory. MEDICATIONS: Loratadine, lisinopril, levothyroxine, hydrochlorothiazide, diltiazem, Aricept, Colace, magnesium, buspirone. PHYSICAL EXAMINATION: GENERAL: Alert and oriented x 3, poor historian. No visible distress, looking somewhat weak and tired. Obesity and generalized weakness. VITAL SIGNS: Blood pressure 138/77, heart rate 86 beats per minute, breathing 18 times per minute, temperature 98 degrees Fahrenheit. HEENT AND NECK: Extraocular movements are intact. Sclerae are anicteric. Oral mucosa is moist and clean. No obvious facial weakness. Neck is supple without any lymphadenopathy. No thyromegaly. No JVD. No carotid arterial bruits. LUNGS: Clear to auscultation. No wheezing. No rhonchi. CARDIOVASCULAR SYSTEM: Heart rate is regular in rate and rhythm. S1 and S2 normally audible. No significant murmur or any other abnormal cardiac sounds. ABDOMEN: Soft, nontender. No obvious organomegaly. Bowel sounds are present. No obvious herniation. EXTREMITIES: Without significant cyanosis or edema. Warm to touch. CENTRAL NERVOUS SYSTEM: Alert and oriented x 3. Cranial nerves II-XII are intact. Speech is normal. The patient is able to move all extremities. Normal muscle strength. Deep tendon reflexes are equal on both sides. Plantars were downgoing. LABORATORY DATA: CT of the abdomen and pelvis showing no acute abnormality. Urinalysis positive for nitrates and 21-30 wbc's per high power count. Normal serum electrolytes with sodium elevated to 148. Lactic acid level 2.6, improved to 1.8. IMPRESSION: [place], [place] PATIENT HISTORY AND PHYSICAL EXAM NAME: ABILIO DISLA UNIT #: [id number] ROOM: 422 DOCTOR: OLEG CISNEROS MD BIRTHDATE: [birth year] 1. The patient with sepsis with leukocytosis, urinary infection and elevated lactic acid levels and has improved significantly. She is feeling better, but she is still quite tired. The patient is being treated with IV Zosyn and improving. 2. Generalized anxiety disorder. The patient remains on buspirone. 3. Late onset Alzheimer's type dementia, treated with Aricept. 4. Benign essential hypertension, treated with diltiazem. 5. Hypothyroidism, treated with levothyroxine. 6. POLLEN allergies treated and controlled with Claritin. All treatment continued. OLEG CISNEROS MD CM:HISPHYS:PATIENT HISTORY AND PHYSICAL EXAMINATION [id number] OLEG CISNEROS MD 06/14/18 1606 interface
[2018-06-14 05:14] LABS: BASO # 0.1 10*3/uL (0.0-0.1); BASO % 0.4 % (0.0-1.0); EOS # 0.4 10*3/uL (0.0-0.4); EOS % 3.1 % (1.0-4.0); HEMATOCRIT 40.8 % (37.0-47.0); HEMOGLOBIN 12.6 g/dl (12.0-16.0); LYMPH # 2.4 10*3/uL (1.3-4.4); LYMPH % 17.5 % (27.0-41.0); MEAN CELL VOLUME 85.5 fl (81.0-99.0); MEAN CORPUSCULAR HGB 26.4 pg (27.0-31.0); MEAN CORPUSCULAR HGB CONC 30.9 g/dl (33.0-37.0); MEAN PLATELET VOLUME 9.8 fl (9.6-12.3); MONO # 1.2 10*3/uL (0.1-1.0); MONO % 8.9 % (3.0-9.0); NEUT # 9.6 10*3/uL (2.3-7.9); NEUT % 69.5 % (47.0-73.0); PLATELET COUNT AUTOMATED 312 10*3/uL (130-400); RED BLOOD COUNT 4.77 10*6/uL (4.10-5.10); RED CELL DISTRI WIDTH 16.3 % (0-14.5); WHITE BLOOD COUNT 13.7 10*3/uL (4.8-10.8)
[2018-06-14 05:24] LABS: BILIRUBIN NEGATIVE (NEGATIVE); BLOOD 1+ (NEGATIVE); CLARITY SL CLOUDY (CLEAR); COLOR YELLOW (YELLOW); GLUCOSE NEGATIVE (NEGATIVE); KETONE TRACE (NEGATIVE); LEUKO ESTERASE 1+ (NEGATIVE); NITRITE POSITIVE (NEGATIVE); UROBILINOGEN 0.2 E.U./dl (0.2-1.0)
[2018-06-14 05:29] LABS: ALBUMIN 3.4 gm/dl (3.1-4.5); ALKALINE PHOSPHATASE 95 U/L (45-117); BUN 12 mg/dl (7-24); CHLORIDE 113 mmol/L (98-107); CREATININE 0.98 mg/dL (0.55-1.02); LIPASE 245 U/L (73-393); POTASSIUM 3.6 mmol/L (3.5-5.1); SGOT/AST 14 IU/L (3-35); SGPT/ALT 25 U/L (12-78); SODIUM 148 mmol/L (136-145); TOTAL PROTEIN 7.1 gm/dL (6.4-8.2)
[2018-06-14 05:39] LABS: BACTERIA 4+
[2018-06-14 05:40] LABS: WBC 21-30 wbc/hpf (0-5)
[2018-06-15] VITALS: BP 152/96
[2018-06-15 06:58] LABS: BASO % 0.4 % (0.0-1.0); EOS # 0.4 10*3/uL (0.0-0.4); EOS % 4.6 % (1.0-4.0); HEMATOCRIT 36.9 % (37.0-47.0); HEMOGLOBIN 11.2 g/dl (12.0-16.0); LYMPH # 2.2 10*3/uL (1.3-4.4); LYMPH % 28.6 % (27.0-41.0); MEAN CELL VOLUME 86.6 fl (81.0-99.0); MEAN CORPUSCULAR HGB 26.3 pg (27.0-31.0); MEAN CORPUSCULAR HGB CONC 30.4 g/dl (33.0-37.0); MEAN PLATELET VOLUME 8.9 fl (9.6-12.3); MONO # 0.7 10*3/uL (0.1-1.0); MONO % 8.9 % (3.0-9.0); NEUT # 4.5 10*3/uL (2.3-7.9); NEUT % 57.1 % (47.0-73.0); PLATELET COUNT AUTOMATED 249 10*3/uL (130-400); RED BLOOD COUNT 4.26 10*6/uL (4.10-5.10); RED CELL DISTRI WIDTH 16.2 % (0-14.5); WHITE BLOOD COUNT 7.8 10*3/uL (4.8-10.8)
[2018-06-15 07:25] LABS: BUN 10 mg/dl (7-24); CHLORIDE 110 mmol/L (98-107); SODIUM 142 mmol/L (136-145)
[2018-06-15 08:00] VITALS: BP 132/98
[2018-06-15 12:00] VITALS: BP 126/66
[2018-06-15 16:03] VITALS: BP 110/781
[2018-06-15 20:00] VITALS: BP 135/78
[2018-06-16] VITALS: BP 130/70
[2018-06-16 05:55] LABS: BUN 13 mg/dl (7-24); CHLORIDE 109 mmol/L (98-107); POTASSIUM 3.5 mmol/L (3.5-5.1); SODIUM 144 mmol/L (136-145)
[2018-06-16 08:00] VITALS: BP 149/77
[2018-06-16 12:00] VITALS: BP 151/76
[2018-06-16] MEDS ORDERED: ZOSYN 2.252.25 GM/50 IV (15:42)
[2018-06-16 16:00] VITALS: BP 140/90
== END 2018-06-16 18:23 | DRG 872 ==
LOC: ED 04:34 → 4E 06:55 → EDHOLD 06:55 → 4E 07:25
PROVIDERS: Internal Medicine; Student in an Organized Health Care Education/Training Program
DX: A41.9 Sepsis, unspecified organism (principal); E87.2 Acidosis; B96.20 Unspecified Escherichia coli [E. coli] as the cause of diseases classified elsewhere; R62.7 Adult failure to thrive; F41.1 Generalized anxiety disorder; G30.1 Alzheimer's disease with late onset; F02.80 Dementia in other diseases classified elsewhere, unspecified severity, without behavioral disturbance, psychotic disturbance, mood disturbance, and anxiety; I10 Essential (primary) hypertension; E03.9 Hypothyroidism, unspecified; J44.9 Chronic obstructive pulmonary disease, unspecified; K21.0 Gastro-esophageal reflux disease with esophagitis; F51.04 Psychophysiologic insomnia; R65.20 Severe sepsis without septic shock; N30.91 Cystitis, unspecified with hematuria; Z88.8 Allergy status to other drugs, medicaments and biological substances; Z79.899 Other long term (current) drug therapy; Z87.440 Personal history of urinary (tract) infections; Z90.89 Acquired absence of other organs; Z98.51 Tubal ligation status; Z90.710 Acquired absence of both cervix and uterus; Z98.42 Cataract extraction status, left eye; Z87.891 Personal history of nicotine dependence; Z82.3 Family history of stroke; Z82.49 Family history of ischemic heart disease and other diseases of the circulatory system; Z83.6 Family history of other diseases of the respiratory system

== ENCOUNTER 2018-07-01 06:49 | Inpatient (IN) | payer OTHER ==
[~2018-07-01] VITALS: Ht 157.5 cm; Wt 83.9 kg
--- NOTE | ~2018-07-01 | PR ---
[place], [place] PROGRESS NOTE [id number] UNIT #: [id number] ROOM: 421 DOCTOR: OLEG CISNEROS MD BIRTHDATE: [birth year] DOS: 07/03/2018 SUBJECTIVE: The patient feels about the same. No new symptoms. OBJECTIVE: GENERAL APPEARANCE: The patient is alert and oriented x 3, in no visible distress. Generalized weakness. VITAL SIGNS: Blood pressure 130/72, heart rate 96 beats per minute, breathing 18 times per minute, temperature 98 degrees Fahrenheit. HEENT AND NECK: Exam within normal limits. CARDIOVASCULAR SYSTEM: Heart rate is regular in rate and rhythm. S1 and S2 normally audible. LUNGS: Clear to auscultation. ABDOMEN: Soft, nontender. No obvious organomegaly. Bowel sounds are present. EXTREMITIES: Without significant cyanosis or edema. IMPRESSION: 1. Generalized weakness and adult failure to thrive. 2. Positive blood cultures for gram-positive cocci in clusters. The patient on vancomycin and waiting for Infectious Disease opinion. 3. Centrilobular emphysema, treated with bronchodilators and increased shortness of breath or hypoxemia. She is chronically short of breath. 4. Hypothyroidism, treated with supplements. 5. Benign essential hypertension, treated and controlled. 6. Hypokalemia, treated with extra potassium supplements. 7. Advanced adult failure to thrive. The patient working with physical therapy. 8. Chest pains, evaluated by Cardiology, no further management recommended. OLEG CISNEROS MD CM:PNTRANS 1204 07 OLEG CISNEROS MD 07/03/182205 interface
--- NOTE | ~2018-07-01 | DS ---
[place], [place] DISCHARGE SUMMARY NAME: ABILIO DISLA UNIT #: [id number] ROOM: 421 DOCTOR: OLEG CISNEROS MD BIRTHDATE: [birth year] DOS: 07/04/2018 DISCHARGE DIAGNOSES: 1. Generalized adult failure to thrive. 2. Positive blood cultures evaluated by Infectious Disease specialist. 3. Centrilobular emphysema, treated with bronchodilators, chronic obstructive pulmonary disease. 4. Hypothyroidism. 5. Benign essential hypertension. 6. Hypokalemia. 7. Chest pains from uncertain etiology, evaluated by Dr. Leon, the sales center manager. No cardiac cause suspected. No further workup recommended. 8. Generalized anxiety disorder. 9. Late onset Alzheimer's type dementia. 10. Hypothyroidism. 11. Chronic obstructive pulmonary disease. 12. Chronic primary insomnia. 13. Gastroesophageal reflux disease and esophagitis. HOSPITAL COURSE: The patient presented to the Emergency Department with shortness of breath, but evaluation showed no significant hypoxemia. There were complaints of chest pains for which Cardiology was consulted and they evaluated the patient. The patient has been chest pain free since admission. The patient's cardiac enzymes were negative. Advance adult failure to thrive, we took bedsore precautions and took fall precautions. The patient with chronic shortness of breath and COPD, but is maintaining 100% pulse ox at room air. Generalized severe anxiety disorder, being managed. CT angiogram of the chest was negative for pulmonary embolism. Hypokalemia, treated with extra potassium supplements. LABORATORY DATA: Negative cardiac enzymes and CT angiogram. DISCHARGE MANAGEMENT: Cardizem CD 180 mg a day, DuoNebs every 4 hours as needed, potassium chloride 20 mEq daily, furosemide 20 mg daily and buspirone 5 mg every 8 hours. Antibiotics to be decided by Infectious Disease specialist prior to discharge as discussed with patient's nurse, valeria Clay. [place], [place] DISCHARGE SUMMARY NAME: ABILIO DISLA UNIT #: [id number] ROOM: 421 DOCTOR: OLEG CISNEROS MD BIRTHDATE: [birth year] OLEG CISNEROS MD CM:DISCHARG [id number] OLEG CISNEROS MD 07/04/18 1407 interface
--- NOTE | ~2018-07-01 | WRIGHTHP ---
[place], [place] PATIENT HISTORY AND PHYSICAL EXAM NAME: ABILIO DISLA [facility] #: [id number] UNIT #: [id number] ROOM: 421 DOCTOR: OLEG CISNEROS MD BIRTHDATE: [birth year] DOS: 07/01/2018 HISTORY OF PRESENT ILLNESS: 1. The patient is an 83-year-old female with a past medical history of advanced adult failure to thrive. 2. Generalized anxiety disorder. 3. Late onset Alzheimer's type dementia. 4. Benign essential hypertension. 5. Hypothyroidism. 6. COPD. 7. Benign essential hypertension. 8. Chronic primary insomnia. 9. GERD and esophagitis. The patient was sent over to Emergency Department with and she was considered to be hypoxemic and short of breath, but evaluation in the Emergency Department revealed that she was not hypoxemic or short of breath, but there were some complaints of chest pains and she maintained a full code status, so she was admitted to rule out for myocardial infarction and cardiology consult. REVIEW OF SYSTEMS: RESPIRATORY: Some complains of shortness of breath at shelter. GASTROINTESTINAL: No nausea, vomiting, diarrhea or constipation. CARDIOVASCULAR: Some complains of vague chest pains. FAMILY HISTORY: Noncontributory. HOME MEDICATIONS: Diltiazem, potassium, furosemide, buspirone. ALLERGIES: Known allergies to ERYTHROMYCIN. FAMILY HISTORY: Noncontributory. PHYSICAL EXAMINATION: GENERAL: Awake, alert, mostly oriented, but a poor historian, in no visible distress, moderately obese, generalized weakness. HEENT AND NECK: Extraocular movements are intact. Sclerae are anicteric. Oral mucosa is moist and clean. No obvious facial weakness. Neck is supple without any lymphadenopathy. No thyromegaly. No JVD. No carotid arterial bruits. LUNGS: Clear to auscultation. No wheezing. No rhonchi. CARDIOVASCULAR SYSTEM: Heart rate is regular in rate and rhythm. S1 and S2 normally audible. No significant murmur or any other abnormal cardiac sounds. ABDOMEN: Soft, nontender. No obvious organomegaly. Bowel sounds are present. No obvious herniation. EXTREMITIES: Without significant cyanosis or edema. Warm to touch. CENTRAL NERVOUS SYSTEM: Alert and oriented x 3. Cranial nerves II-XII are intact. Speech is normal. The patient is able to move all extremities. Normal muscle strength. Deep tendon reflexes are equal on both sides. Plantars were downgoing. IMPRESSION: [place], [place] PATIENT HISTORY AND PHYSICAL EXAM [id number] #: [id number] ROOM: 421 DOCTOR: OLEG CISNEROS MD BIRTHDATE: [birth year] 1. The patient with complaints of chest pains with negative cardiac enzymes so far, evaluated by pediatric ophthalmologist, Dr. Acevedo who was only recommended increase in diuresis. 2. Advance adult failure to thrive. I recommended the patient should maintain a comfort care code status as compared to full code, which can result in overt treatment considering patient's health and condition. This was discussed with the patient and her daughter. 3. Hypothyroidism, treated with thyroid supplements. 4. Benign essential hypertension, treated and controlled. 5. CT angiogram of the chest showed no evidence of pulmonary embolism. 6. Hypokalemia, to treat with extra potassium supplements. 7. The patient's centrilobular emphysema to be continued on bronchodilators. The patient is showing no signs of increased hypoxemia at present time as compared to her baseline. OLEG CISNEROS MD CM:HISPHYS:PATIENT HISTORY AND PHYSICAL EXAMINATION 54 04 OLEG CISNEROS MD 07/01/182101 interface
--- NOTE | ~2018-07-01 | EKG ---
[place], [place] ELECTROCARDIOGRAM REPORT NAME: ABILIO DISLA UNIT #: [id number] ROOM: 421 DOCTOR: EMELI DRAFT REPORT BIRTHDATE: [birth year] [facility] Test Date: 2018-07-01 Test Time: 07:32:23 Pat Name: ABILIO DISLA Department: Room: 421 Gender: F Insulation Blanket Maker: Raquel Blount : 1935 Requested By: SERINA ENG Order Number: [id number] Reading MD: Wilver Acevedo MD Measurements Intervals Phil Campbell Rate: 72 P: 46 MS: 204 QRS: -26 QRSD: 75 T: QT: 412 QTc: 451 Interpretive Statements Sinus rhythm Poor precordial R-wave progression No previous ECG available for comparison Electronically Signed On 07-01-2018 16:48:53 PDT by Wilver Acevedo MD CM:EKGRPT:ELECTROCARDIOGRAM REPORT 0732 1648 SERINA SAINZ DRAFT REPORT SERINA ENG MD
--- NOTE | ~2018-07-01 | PR ---
[place], [place] PROGRESS NOTE NAME: ABILIO DISLA UNIT #: [id number] ROOM: 421 DOCTOR: OLEG CISNEROS MD BIRTHDATE: [birth year] DOS: 07/02/2018 SUBJECTIVE: The patient continues to improve, improving breathing. OBJECTIVE: VITAL SIGNS: Blood pressure 138/98, heart rate 97 beats per minute, breathing 17 times per minute, temperature 98 degrees Fahrenheit. GENERAL APPEARANCE: The patient is alert and oriented x 3, in no visible distress. Obesity and generalized weakness. HEENT AND NECK: Exam within normal limits. CARDIOVASCULAR SYSTEM: Heart rate is regular in rate and rhythm. S1 and S2 normally audible. LUNGS: Clear to auscultation. ABDOMEN: Soft, nontender. No obvious organomegaly. Bowel sounds are present. EXTREMITIES: Without significant cyanosis or edema. IMPRESSION: 1. Chest pains. Cardiac enzymes were checked and opinion was taken from Dr. Acevedo, who recommended increase diuresis. 2. Advanced adult failure to thrive. The patient to work with physical therapy. 3. Hypothyroidism, treated with thyroid supplements. 4. Benign essential hypertension, treated and controlled. 5. CT angiogram of the chest, no evidence of pulmonary embolism. 6. Hypokalemia for which I will give her extra potassium supplements today. Potassium level is coming up. 7. Centrilobular emphysema, treated with bronchodilators. No increased signs of hypoxemia. OLEG CISNEROS MD CM:PNTRANS [id number] OLEG CISNEROS MD 07/08/18 0856 interface
--- NOTE | ~2018-07-01 | CON ---
[place], [place] REPORT OF CONSULTATION NAME: ABILIO DISLA UNIT #: [id number] ROOM: 421 DOCTOR: MJ SAUL MD BIRTHDATE: [birth year] DOS: 07/01/2018 CARDIOLOGY CONSULTATION REASON FOR CONSULTATION: Dyspnea and possible chest pain. HISTORY OF PRESENT ILLNESS: The patient is an 83-year-old woman who is a resident of a senior care and has moderate dementia. She is a very limited historian. She has been seen in the past by Dr. Vasquez and Dr. Mendez and does have a history of COPD. As best she can recall, she does not have a history of coronary artery disease, but her dyspnea is felt to be due to underlying lung disease. She was brought to the Emergency Room by ambulance this morning after staff at [facility] noted that she looked dyspneic. Pulse oximetry was reportedly in the 70s on room air. By the time EMS arrived, she was 99% on 4 liters nasal cannula. According to emergency senior medical director. She was not cyanotic and was not in any distress, but she was transported to the Emergency Room for further assessment. According to the Emergency Room notes, she did not have any chest pain, but she was admitted for evaluation of chest pain. When I queried her now, she stated that her chest hurt some but she could not quantify or describe the pain. PAST MEDICAL HISTORY: Includes: 1. COPD. 2. Dementia. 3. Hypertension. 4. Hypothyroidism. 5. History of tonsillectomy and previous section. 6. No previous history of coronary artery disease. 7. History of irregular heartbeat in 2010. She was seen by Dr. Vasquez at that time who felt that she was having multifocal atrial tachycardia. MEDICATIONS: Prior to admission: Anoro Ellipta 1 inhalation daily, Flonase nasal spray 2 sprays daily, acetaminophen q. 4 hours p.r.n., ascorbic acid 500 mg daily, buspirone 5 mg every 8 hours, calcium carbonate 500 mg daily, diltiazem CD 180 mg daily, docusate 200 mg b.i.d., donepezil 10 mg at bedtime, hydrochlorothiazide 12.5 mg daily, levothyroxine 88 mcg daily, lisinopril 10 mg daily, magnesium hydroxide 400 mg p.r.n. constipation, multivitamin daily and polyethylene glycol 17 grams daily. ALLERGIES: She lists her allergy to AZITHROMYCIN. REVIEW OF SYSTEMS: The patient denies diplopia or loss of vision. She denies focal weakness. She denies lightheadedness or syncope. She states that she does get out of breath easily. She denies fevers, chills, sweats or recent weight change. She denies nausea or vomiting. She denies cough or hemoptysis. She denies any hematemesis. She denies change in bowel or bladder habits, although she does get constipated. She denies blood in her stools or urine. She denies any heat or cold intolerance. She denies polyuria or polydipsia. [place], [place] REPORT OF CONSULTATION NAME: ABILIO DISLA UNIT #: [id number] ROOM: [facility] DOCTOR: MJ SAUL MD BIRTHDATE: [birth year] She does note some swelling in her ankles. She denies any skin rashes. The remainder of the review of systems is negative except as noted above. SOCIAL HISTORY: The patient was a smoker. She does not consume alcohol or drugs. PHYSICAL EXAMINATION: GENERAL: The patient is a well-nourished white female who is awake, alert and oriented. VITAL SIGNS: Pulse is 79 and regular, blood pressure is 129/71. She is afebrile. She weighs 83.9 kg and has a body mass index of 33.8. HEENT: Normocephalic and atraumatic. Extraocular muscles are intact. Sclerae are clear. Pupils equal, round and react to light. The oral mucosa is moist. Tongue is midline. NECK: Supple. She has no jugular distention or hepatojugular reflux. Carotids are full. No bruit. She has no neck or supraclavicular masses, no thyromegaly. LUNGS: Respirations are unlabored. She has decreased breath sounds at the bases. She has no wheezes or rales. She has presacral edema present. There is no chest wall tenderness. CARDIOVASCULAR: Her heart has a regular rhythm with an S4 gallop, but no S3. The PMI is not displaced. She has no precordial heave, lift or thrill. ABDOMEN: Obese, but otherwise benign, without mass, organomegaly or bruits. EXTREMITIES: Showed trace edema. There are no palpable cords or Homans sign. Peripheral pulses are easily palpated in the feet bilaterally. LABORATORY DATA: I reviewed her chest x-ray, which showed clear lungs. A CT angiogram of the chest showed no evidence for pulmonary emboli. There was a ground glass opacity in the right upper lobe which was nonspecific, but probably due to focal pneumonitis. I did review her EKG, which showed sinus rhythm with nonspecific T-wave flattening, but no acute ST elevation or depression. She did have an echocardiogram dated 11/02/2017 that showed an ejection fraction of 65-70% with stage 1 diastolic relaxation abnormalities. Previous echocardiograms have shown severe left ventricular hypertrophy. Sodium is 144 with potassium 3.2, chloride 108, CO2 of 28, BUN 9, creatinine 0.92. Troponin x 1 is normal. Total protein is 7.3 with albumin is 3.4, hemoglobin is 12.5, white count 7000, platelet count 284,000. IMPRESSION: 1. Acute dyspnea and hypoxemia. Her presentation is most consistent with a pulmonary cause. She does show mild fluid overload, but does not show dramatic heart failure by exam or chest or x-ray. 2. History of heart failure with preserved ejection fraction. 3. Remote history of possible multifocal atrial tachycardia. 4. History of hypertension. 5. History of cigarette abuse. PLAN: We will increase her diuresis somewhat by changing her hydrochlorothiazide to furosemide. We will monitor her electrolytes. Replace her potassium. We will probably follow her for a day or two and when she [place], [place] REPORT OF CONSULTATION NAME: ABILIO DISLA UNIT #: [id number] ROOM: 421 DOCTOR: MJ SAUL MD BIRTHDATE: [birth year] appears to be euvolemic, remain available only as needed. I thank Dr. Buckley for asking our advice regarding the patient's care. MJ SAUL MD CM:CONSTR:REPORT OF CONSULTATION 1357 07/01/18 1603 interface
[2018-07-01 06:49] VITALS: BP 163/90
[~2018-07-01 06:49] MED LIST changes: +ZOSYN 2.252.25 GM/50 IV
[2018-07-01] MEDS ORDERED: ARICEPT10 M1 PO (07:02)
[2018-07-01] MEDS ORDERED: MULTIPLE VITAM1 EAC2 PO (07:04)
[2018-07-01] MEDS ORDERED: MIRALAX POWDER255 G1 PO (07:04)
[2018-07-01] MEDS ORDERED: Oscal,Oyster S500 MG PO (07:05)
[2018-07-01] MEDS ORDERED: VITAMIN C500 M8 PO (07:06)
[2018-07-01 07:40] LABS: BASO # 0.1 10*3/uL (0.0-0.1); BASO % 0.9 % (0.0-1.0); EOS # 0.6 10*3/uL (0.0-0.4); EOS % 7.8 % (1.0-4.0); HEMATOCRIT 39.7 % (37.0-47.0); HEMOGLOBIN 12.5 g/dl (12.0-16.0); LYMPH # 1.9 10*3/uL (1.3-4.4); LYMPH % 27.5 % (27.0-41.0); MEAN CELL VOLUME 83.6 fl (81.0-99.0); MEAN CORPUSCULAR HGB 26.3 pg (27.0-31.0); MEAN CORPUSCULAR HGB CONC 31.5 g/dl (33.0-37.0); MONO # 0.9 10*3/uL (0.1-1.0); MONO % 12.5 % (3.0-9.0); NEUT # 3.6 10*3/uL (2.3-7.9); NEUT % 51.2 % (47.0-73.0); PLATELET COUNT AUTOMATED 284 10*3/uL (130-400); RED BLOOD COUNT 4.75 10*6/uL (4.10-5.10); RED CELL DISTRI WIDTH 15.2 % (0-14.5)
[2018-07-01 07:49] LABS: ACT PARTIAL THROMBO TIME 23.5 SECONDS (20.8-31.5)
[2018-07-01 08:04] LABS: ALBUMIN 3.4 gm/dl (3.1-4.5); ALKALINE PHOSPHATASE 83 U/L (45-117); BUN 9 mg/dl (7-24); CHLORIDE 108 mmol/L (98-107); CREATININE 0.92 mg/dL (0.55-1.02); POTASSIUM 3.2 mmol/L (3.5-5.1); SGOT/AST 24 IU/L (3-35); SGPT/ALT 26 U/L (12-78); SODIUM 144 mmol/L (136-145); TOTAL PROTEIN 7.3 gm/dL (6.4-8.2)
[2018-07-01 08:05] LABS: TROPONIN I < 0.015 ng/ml (<0.045)
[2018-07-01 08:51] LABS: BILIRUBIN NEGATIVE (NEGATIVE); BLOOD NEGATIVE (NEGATIVE); CLARITY CLEAR (CLEAR); COLOR YELLOW (YELLOW); GLUCOSE NEGATIVE (NEGATIVE); KETONE NEGATIVE (NEGATIVE); LEUKO ESTERASE NEGATIVE (NEGATIVE); NITRITE NEGATIVE (NEGATIVE); UROBILINOGEN 0.2 E.U./dl (0.2-1.0)
[2018-07-01 09:03] VITALS: BP 162/75
[2018-07-01 09:03] LABS: MUCOUS 2+
[2018-07-01 09:04] LABS: BACTERIA TRACE
[2018-07-01] MEDS ORDERED: MIRALAX119 GM PO (11:05)
[2018-07-01] MEDS ORDERED: TYLENOL325 M1 PO (11:07)
[2018-07-01 12:00] VITALS: BP 129/71
[2018-07-01 16:00] VITALS: BP 162/89
[2018-07-01 16:30] VITALS: BP 142/78
[2018-07-01 20:00] VITALS: BP 130/82; BP 130/98
[2018-07-02 00:32] VITALS: BP 150/88
[2018-07-02 06:28] LABS: BASO # 0.1 10*3/uL (0.0-0.1); BASO % 0.9 % (0.0-1.0); EOS # 0.5 10*3/uL (0.0-0.4); HEMATOCRIT 38.4 % (37.0-47.0); HEMOGLOBIN 12.1 g/dl (12.0-16.0); LYMPH # 1.9 10*3/uL (1.3-4.4); LYMPH % 29.5 % (27.0-41.0); MEAN CELL VOLUME 84.8 fl (81.0-99.0); MEAN CORPUSCULAR HGB 26.7 pg (27.0-31.0); MEAN CORPUSCULAR HGB CONC 31.5 g/dl (33.0-37.0); MEAN PLATELET VOLUME 10.1 fl (9.6-12.3); MONO # 0.8 10*3/uL (0.1-1.0); MONO % 11.6 % (3.0-9.0); NEUT # 3.3 10*3/uL (2.3-7.9); NEUT % 50.7 % (47.0-73.0); PLATELET COUNT AUTOMATED 269 10*3/uL (130-400); RED BLOOD COUNT 4.53 10*6/uL (4.10-5.10); RED CELL DISTRI WIDTH 15.7 % (0-14.5); WHITE BLOOD COUNT 6.6 10*3/uL (4.8-10.8)
[2018-07-02 06:48] LABS: BUN 14 mg/dl (7-24); CHLORIDE 107 mmol/L (98-107); CREATININE 0.86 mg/dL (0.55-1.02); POTASSIUM 3.3 mmol/L (3.5-5.1); SODIUM 144 mmol/L (136-145)
[2018-07-02 08:00] VITALS: BP 130/70
[2018-07-02 12:00] VITALS: BP 134/88
[2018-07-02 16:00] VITALS: BP 138/98
[2018-07-02 20:00] VITALS: BP 112/68
[2018-07-03] VITALS: BP 129/67
[2018-07-03 08:00] VITALS: BP 130/72
[2018-07-03 12:00] VITALS: BP 125/77
[2018-07-03 16:00] VITALS: BP 152/78
[2018-07-03 20:00] VITALS: BP 114/68
[2018-07-04] VITALS: BP 147/67
[2018-07-04 08:00] VITALS: BP 148/84
[2018-07-04 12:00] VITALS: BP 126/67
== END 2018-07-04 17:12 | disposition other institution (70) | DRG 313 ==
LOC: ED 06:49 → EDHOLD 10:14 → 4E 10:14
PROVIDERS: Emergency Medicine; Internal Medicine Cardiovascular Disease
DX: R07.9 Chest pain, unspecified (principal); R78.81 Bacteremia; E44.1 Mild protein-calorie malnutrition; E87.6 Hypokalemia; J43.2 Centrilobular emphysema; R62.7 Adult failure to thrive; E03.9 Hypothyroidism, unspecified; E55.9 Vitamin D deficiency, unspecified; I50.9 Heart failure, unspecified; I11.0 Hypertensive heart disease with heart failure; F41.1 Generalized anxiety disorder; G30.1 Alzheimer's disease with late onset; F02.80 Dementia in other diseases classified elsewhere, unspecified severity, without behavioral disturbance, psychotic disturbance, mood disturbance, and anxiety; F51.01 Primary insomnia; F51.04 Psychophysiologic insomnia; K21.0 Gastro-esophageal reflux disease with esophagitis; R09.02 Hypoxemia; D50.9 Iron deficiency anemia, unspecified; B96.89 Other specified bacterial agents as the cause of diseases classified elsewhere; Z98.51 Tubal ligation status; Z98.891 History of uterine scar from previous surgery; Z87.891 Personal history of nicotine dependence; Z88.1 Allergy status to other antibiotic agents; Z68.33 Body mass index [BMI] 33.0-33.9, adult

== ENCOUNTER 2018-11-24 22:46 | Emergency (ER) | payer OTHER ==
[~2018-11-24] VITALS: Ht 157.4 cm; Wt 77.1 kg
[~2018-11-24 22:46] MED LIST changes: +ARICEPT10 M1 PO; +MIRALAX119 GM PO; +MIRALAX17 GM PO; +MULTIPLE VITAM1 EAC2 PO; +Oscal,Oyster S500 MG PO
[2018-11-24 22:55] VITALS: BP 134/103
[2018-12-12] MEDS ORDERED: AMBIEN10 M1 PO (16:14)
[2018-12-14] MEDS ORDERED: CEFUROXIME AXE250 MG PO (08:14)
== END 2018-11-25 02:14 | disposition other institution (70) ==
LOC: ED 22:46
DX: M25.551 Pain in right hip (principal); M54.5 Low back pain; J44.9 Chronic obstructive pulmonary disease, unspecified; K21.9 Gastro-esophageal reflux disease without esophagitis; I10 Essential (primary) hypertension; E11.9 Type 2 diabetes mellitus without complications; Z79.899 Other long term (current) drug therapy; Z88.1 Allergy status to other antibiotic agents; Z87.891 Personal history of nicotine dependence; Z98.890 Other specified postprocedural states; Z98.51 Tubal ligation status; Z90.710 Acquired absence of both cervix and uterus; W19.XXXA Unspecified fall, initial encounter; Y93.89 Activity, other specified; Y92.89 Other specified places as the place of occurrence of the external cause; Y99.9 Unspecified external cause status

== ENCOUNTER 2019-02-17 06:36 | Emergency (ER) | payer OTHER ==
[~2019-02-17] VITALS: Ht 167.6 cm; Wt 81.6 kg
--- NOTE | ~2019-02-17 | EKG ---
[place], [place] ELECTROCARDIOGRAM REPORT NAME: ABILIO DISLA UNIT #: [id number] ROOM: DOCTOR: EMELI DRAFT REPORT BIRTHDATE: [birth year] [facility] Test Date: 2019-02-17 Test Time: 07:58:36 Pat Name: ABILIO DISLA Department: Room: Gender: F Road Patcher: Raquel Blount : 1935 Requested By: RAFA HARRIS Order Number: [id number] Reading MD: Paul Murdock MD Measurements Intervals [place] Rate: 67 P: 53 DC: 220 QRS: -22 QRSD: 79 T: 226 QT: 431 QTc: 455 Interpretive Statements Sinus rhythm Prolonged DC interval Borderline left axis deviation Low voltage, precordial leads Nonspecific T abnormalities, inferior leads Compared to ECG 12/12/2018 19:54:24 First degree AV block now present T-wave abnormality now present Left ventricular hypertrophy no longer present Q waves no longer present Electronically Signed On 02-21-2019 4:12:20 PDT by Paul Murdock MD CM:EKGRPT:ELECTROCARDIOGRAM REPORT [id number] RAFA SHARMA DRAFT REPORT RAFA HARRIS DO
[~2019-02-17 06:36] MED LIST changes: +CEFUROXIME AXE250 MG PO; -SYNTHROID,LEVO88 MCG PO; +Synthroid,Lev150 MCG PO
[2019-02-17 08:00] VITALS: BP 142/72
[2019-02-17 08:35] LABS: BASO % 0.4 % (0.0-1.0); EOS # 0.3 10*3/uL (0.0-0.4); EOS % 2.8 % (1.0-4.0); HEMATOCRIT 40.5 % (37.0-47.0); HEMOGLOBIN 13.3 g/dl (12.0-16.0); LYMPH # 2.3 10*3/uL (1.3-4.4); LYMPH % 24.1 % (27.0-41.0); MEAN CORPUSCULAR HGB 28.9 pg (27.0-31.0); MEAN CORPUSCULAR HGB CONC 32.8 g/dl (33.0-37.0); MEAN PLATELET VOLUME 10.4 fl (9.6-12.3); MONO # 0.8 10*3/uL (0.1-1.0); NEUT # 5.9 10*3/uL (2.3-7.9); NEUT % 63.4 % (47.0-73.0); PLATELET COUNT AUTOMATED 276 10*3/uL (130-400); RED CELL DISTRI WIDTH 14.2 % (0-14.5); WHITE BLOOD COUNT 9.4 10*3/uL (4.8-10.8)
[2019-02-17 08:49] LABS: ACT PARTIAL THROMBO TIME 26.4 SECONDS (20.0-32.1)
[2019-02-17 08:51] LABS: ALBUMIN 3.5 gm/dl (3.1-4.5); ALKALINE PHOSPHATASE 96 U/L (45-117); BUN 13 mg/dl (7-24); CHLORIDE 110 mmol/L (98-107); LIPASE 123 U/L (73-393); POTASSIUM 3.6 mmol/L (3.5-5.1); SGOT/AST 13 IU/L (3-35); SGPT/ALT 16 U/L (12-78); SODIUM 144 mmol/L (136-145); TOTAL PROTEIN 7.1 gm/dL (6.4-8.2); TROPONIN I < 0.015 ng/ml (<0.045)
[2019-02-17 09:41] LABS: BILIRUBIN NEGATIVE (NEGATIVE); BLOOD TRACE-INTACT (NEGATIVE); CLARITY CLEAR (CLEAR); COLOR YELLOW (YELLOW); GLUCOSE NEGATIVE (NEGATIVE); KETONE NEGATIVE (NEGATIVE); LEUKO ESTERASE NEGATIVE (NEGATIVE); NITRITE NEGATIVE (NEGATIVE); SPECIFIC GRAVITY 1.015 (1.005-1.030); UROBILINOGEN 0.2 E.U./dl (0.2-1.0)
[2019-02-17 10:06] LABS: BACTERIA 1+; EPITHELIAL CELLS 0-2; MUCOUS 1+
== END 2019-02-17 11:10 ==
LOC: ED 06:36
PROVIDERS: Emergency Medicine
DX: S70.02XA Contusion of left hip, initial encounter (principal); M79.602 Pain in left arm; M54.9 Dorsalgia, unspecified; M25.511 Pain in right shoulder; M25.512 Pain in left shoulder; J44.9 Chronic obstructive pulmonary disease, unspecified; K21.9 Gastro-esophageal reflux disease without esophagitis; I10 Essential (primary) hypertension; E03.9 Hypothyroidism, unspecified; Z90.710 Acquired absence of both cervix and uterus; Z87.891 Personal history of nicotine dependence; Z88.1 Allergy status to other antibiotic agents; Z79.899 Other long term (current) drug therapy; Z79.2 Long term (current) use of antibiotics; W18.39XA Other fall on same level, initial encounter; Y93.89 Activity, other specified; Y92.128 Other place in nursing home as the place of occurrence of the external cause; Y99.8 Other external cause status

== ENCOUNTER 2019-05-24 22:49 | Inpatient (IN) | payer MEDICARE, OTHER ==
[~2019-05-24] VITALS: Ht 160 cm; Wt 76.3 kg
--- NOTE | ~2019-05-24 | PR ---
[place], [place] PROGRESS NOTE NAME: ABILIO DISLA UNIT #: [id number] ROOM: 409 DOCTOR: SHRUTHI EPPS MD BIRTHDATE: [birth year] DOS: 05/26/2019 SUBJECTIVE: The patient is resting, does not have any new complaints. OBJECTIVE: VITAL SIGNS: Graphic trend shows a pressure of 150/84, pulse 105, respirations 20, temperature 98.5. LUNGS: Clear. HEART: Regular. ABDOMEN: Obese, soft, nontender. EXTREMITIES: Without any edema. CT of the abdomen and pelvis was negative. Urine culture shows 100,000 colonies of heavy Gram-negative bacteria, no identification yet. ASSESSMENT AND PLAN: 1. Metabolic encephalopathy from urinary tract infection, which is improved. 2. Urinary tract infection with gram-negative bacteria, identification is not available, hopefully will have it tomorrow, can be discharged in the morning. 3. Alzheimer's dementia, late onset, stable, pleasantly confused. 4. Benign hypertension, controlled. SHRUTHI EPPS MD CM:PNTRANS 0905 [id number] SHRUTHI EPPS MD 05/26/19 5021 interface
--- NOTE | ~2019-05-24 | PR ---
[place], [place] PROGRESS NOTE [id number] UNIT #: [id number] ROOM: 409 DOCTOR: SHRUTHI EPPS MD BIRTHDATE: [birth year] DOS: SUBJECTIVE: The patient is resting, does not have any complaints. OBJECTIVE: VITAL SIGNS: Blood pressure is 133/63, pulse of 98, respirations 18, temperature 97.4. LUNGS: Clear. HEART: Regular. ABDOMEN: Obese, soft. EXTREMITIES: Without any edema on the right. Left appears to be slightly more swollen than the right side. LABORATORY DATA: Labs on 05/28/2019 were all within normal limits. Blood cultures, no bacterial growth. ASSESSMENT AND PLAN: 1. Extended-spectrum beta-lactamase Escherichia coli. PICC line has been placed and the patient was placed on IV meropenem. 2. The patient is stable and can be discharged to [facility] today. 3. Left lower lobe swelling. Awaiting venous Doppler. 4. Irregular heart rate, EKG is also pending. SHRUTHI EPPS MD CM:PNTRANS 0858 [id number] SHRUTHI EPPS MD 05/30/19 1023 interface
--- NOTE | ~2019-05-24 | PR ---
[place], [place] PROGRESS NOTE NAME: ABILIO DISLA UNIT #: [id number] ROOM: 409 DOCTOR: SHRUTHI EPPS MD BIRTHDATE: [birth year] DOS: SUBJECTIVE: The patient woke up, states that she did not feel that great, but is not able to tell me any chest pains or shortness of breath. Does not have any fever or chills. OBJECTIVE: VITAL SIGNS: Graphic trend shows a blood pressure of 137/72, pulse of 87, respirations 18, temperature 98.1. LUNGS: Clear. HEART: Regular. ABDOMEN: Obese, soft, nontender. EXTREMITIES: Without any edema. ASSESSMENT AND PLAN: 1. Extended-spectrum beta-lactamase Escherichia coli, on IV meropenem. Awaiting PICC line placement. 2. Alzheimer's dementia, late onset with metabolic encephalopathy, pretty much the same as on admission, on low dose Seroquel. Plans to discharge to [facility] once the PICC line is placed. 3. Left leg slightly more swollen than the right. We will do a venous Doppler and placed her on Lovenox. SHRUTHI EPPS MD CM:PNTRANS 8 [phone] SHRUTHI EPPS MD 05/28/192134 interface
--- NOTE | ~2019-05-24 | PR ---
[place], [place] PROGRESS NOTE NAME: ABILIO DISLA UNIT #: [id number] ROOM: 409 DOCTOR: SHRUTHI EPPS MD BIRTHDATE: [birth year] DOS: 05/29/2019 SUBJECTIVE: The patient is resting, pleasant, is not in any distress. OBJECTIVE: VITAL SIGNS: Graphic trend shows a pressure 135/76, pulse of 102, respirations 18, temperature 98. LUNGS: Clear. HEART: Regular. ABDOMEN: Soft. EXTREMITIES: Without any edema. ASSESSMENT AND PLAN: 1. Metabolic encephalopathy, resolving. 2. Extended-spectrum beta-lactamase Escherichia coli. Awaiting PICC line placement and meropenem will be continued. Plan is to discharge to [facility] tomorrow. 3. Alzheimer's dementia, late onset. 4. Benign hypertension, controlled. SHRUTHI EPPS MD CM:PNTRANS [phone] SHRUTHI EPPS MD 05/29/19 0945 interface
--- NOTE | ~2019-05-24 | WRIGHTHP ---
[place], [place] PATIENT HISTORY AND PHYSICAL EXAM NAME: ABILIO DISLA [facility] #: [id number] UNIT #: [id number] ROOM: 409 DOCTOR: SHRUTHI EPPS MD BIRTHDATE: [birth year] DOS: 05/25/2019 HISTORY OF PRESENT ILLNESS: The patient is 84 years old resident of alf last admitted to the hospital in November 2018 with chest pain comes in who comes into the Emergency Room with complaints of back pain. She does not have any complaints of chest pains, palpitations, shortness of breath. Does not have any nausea, any emesis, any fever or chills. She was evaluated in the ER, was found to have a lactic acid of 3.4. The possibility of UTI, was admitted with possible sepsis. This morning, the patient continues to have back pain, but otherwise has no complaints. She has underlying Alzheimer dementia and therefore is not able to give good history. PAST MEDICAL HISTORY: Significant for; 1. Hospitalization last in November with chest pain, negative workup. 2. COPD. 3. Alzheimer's dementia, late onset. 4. Benign hypertension. 5. Hypothyroidism. 6. Primary insomnia. 7. Generalized anxiety disorder. MEDICATIONS: Anoro Ellipta 1 inhalation daily, Flonase 2 sprays daily, Tylenol 650 q.4, ascorbic acid 500 daily, BuSpar 5 b.i.d., Os-[place] 500 daily, Colace 100 b.i.d., lisinopril 10 at bedtime, levothyroxine 150 mcg daily, multivitamin 1 tablet daily, Seroquel 25 at bedtime, zolpidem 10 at bedtime p.r.n. SOCIAL HISTORY: Nonsmoker, does not use any alcohol. PHYSICAL EXAMINATION: GENERAL: She is awake and alert, not oriented to time, place or person, pleasantly confused. VITAL SIGNS: Graphic trend shows a pressure 122/70, pulse of 76, respirations 14, afebrile. LUNGS: Diminished breath sounds. No wheezes, rales or rhonchi heard. HEART: Regular. ABDOMEN: Obese, soft, nontender. EXTREMITIES: Without any edema. BACK: Examination of the back, there is some tenderness across the lumbosacral area. ASSESSMENT AND PLAN: 1. Lactic acid elevation, possibly from sepsis pattern. Urine and blood cultures pending. 2. Urinary tract infection with normal white cell count. Urine culture is pending. IV antibiotics have been started. 3. Hypokalemia. Supplementation has been ordered. 4. Rule out pyelonephritis. CT of the abdomen and pelvis will be ordered. [place], [place] PATIENT HISTORY AND PHYSICAL EXAM NAME: ABILIO DISLA UNIT #: [id number] ROOM: [facility] DOCTOR: SHRUTHI EPPS MD BIRTHDATE: [birth year] SHRUTHI EPPS MD CM:HISPHYS:PATIENT HISTORY AND PHYSICAL EXAMINATION 6 1 SHRUTHI EPPS MD 05/25/19821 interface
--- NOTE | ~2019-05-24 | PR ---
[place], [place] PROGRESS NOTE NAME: ABILIO DISLA UNIT #: [id number] ROOM: 409 DOCTOR: SHRUTHI EPPS MD BIRTHDATE: [birth year] DOS: SUBJECTIVE: The patient is about the same, pleasantly confused. OBJECTIVE: VITAL SIGNS: Graphic trend shows a pressure of 160/91, pulse of 95, respirations 20, temperature 98.6. LUNGS: Clear. HEART: Regular. ABDOMEN: Obese, soft, nontender. EXTREMITIES: Without any edema. ASSESSMENT AND PLAN: 1. Metabolic encephalopathy from urinary tract infection. 2. Extended-spectrum beta-lactamase Escherichia coli. IV antibiotics will be ordered. 3. Adult failure to thrive with Alzheimer's dementia. Add Risperdal for confusion and agitation. SHRUTHI EPPS MD CM:TAMIR 0835 1606 SHRUTHI EPPS MD 05/27/19 1605 interface
--- NOTE | ~2019-05-24 | EKG ---
[place], [place] ELECTROCARDIOGRAM REPORT NAME: ABILIO DISLA UNIT #: [id number] ROOM: 409 DOCTOR: EMELI DRAFT REPORT BIRTHDATE: [birth year] [facility] Test Date: 2019-05-30 Test Time: 08:33:55 Pat Name: ABILIO DISLA Department: Room: 409 1 Gender: F Software Quality Assurance Specialist: Raquel Blount : 1935 Requested By: SHRUTHI EPPS Order Number: [id number] Reading MD: Nan Leon MD Measurements Intervals [place] Rate: 83 P: 47 DE: 206 QRS: -11 QRSD: 76 T: -1 QT: 400 QTc: 470 Interpretive Statements Sinus arrhythmia Borderline T abnormalities, inferior leads Compared to ECG 05/25/2019 00:13:30 T-wave abnormality now present Sinus rhythm no longer present Atrial premature complex(es) no longer present First degree AV block no longer present Electronically Signed On 06-01-2019 8:02:12 PDT by Nan Leon MD CM:EKGRPT:ELECTROCARDIOGRAM REPORT [id number] SHRUTHI EPPS MD EPIPHANY DRAFT REPORT SHRUTHI EPPS MD
--- NOTE | ~2019-05-24 | EKG ---
[place], [place] ELECTROCARDIOGRAM REPORT NAME: ABILIO DISLA UNIT #: [id number] ROOM: 409 DOCTOR: EMELI DRAFT REPORT BIRTHDATE: [birth year] [facility] Test Date: 2019-05-25 Test Time: 00:13:30 Pat Name: ABILIO DISLA Department: Room: 409 Gender: F Beach Expert: WILLIAM : 1935 Requested By: CARLOS ARELLANO Order Number: [id number] Reading MD: Delfino Castro MD Measurements Intervals [place] Rate: 90 P: 69 [place]: 205 QRS: 0 QRSD: 74 T: 29 QT: 383 QTc: 469 Interpretive Statements Sinus rhythm with PACs Blocked PAC First degree AV block Probable Left atrial enlargement Electronically Signed On 05-25-2019 13:39:27 PDT by Delfino Castro MD CM:EKGRPT:ELECTROCARDIOGRAM REPORT [id number] 1339 CARLOS SHARMA DRAFT REPORT CARLOS ARELLANO DO
--- NOTE | ~2019-05-24 | DS ---
[place], [place] DISCHARGE SUMMARY NAME: ABILIO DISLA UNIT #: [id number] ROOM: 409 DOCTOR: SUPRIYA DOUGLASSHRUTHI BIRTHDATE: [birth year] DOS: 05/30/2019 DIAGNOSES: 1. Extended-spectrum beta-lactamase Escherichia coli of the urine. 2. Metabolic encephalopathy. 3. Alzheimer's dementia, late onset. 4. Chronic obstructive pulmonary disease. 5. Benign hypertension. 6. Hypothyroidism. 7. Primary insomnia. 8. Generalized anxiety disorder. MEDICATIONS: On discharge will be meropenem 1 gram IV q. 8 for 7 days and please culture the urine a week after the antibiotics over, amlodipine 5 daily, Colace 200 b.i.d., levothyroxine 150 mcg daily, milk of mag 400 daily p.r.n., BuSpar 5 b.i.d., Flonase 2 sprays each nostril daily, Anoro Ellipta 1 inhalation daily, Aricept 10 mg at bedtime, polyethylene glycol 17 grams at bedtime, ascorbic acid 500 mg daily, Seroquel 25 at bedtime; Tylenol 650 q. 4 p.r.n. Zolpidem was discontinued. HOSPITAL COURSE: This patient is 84, comes in with confusion. Please refer to H and P note for further details. After admission, she was placed on IV fluids, IV antibiotics. Urine culture and blood cultures were performed. The mental status improved. Urine culture has grown ESBL. The patient had a PICC line placed. IV antibiotics started. Social service has been consulted for discharge back to the retirement on IV meropenem. The patient is overall stable. She has developed some swelling in the left lower leg. Venous Doppler was arranged for this morning. I do not have any results yet. White cell count is normal at 6.4, hemoglobin is 12.9, hematocrit 40.1. BMP: Glucose 81, BUN 7, creatinine 0.64, sodium 146, potassium 3.6, chloride 112. MRSA of the nares negative. CT of the abdomen and pelvis did not show any acute pathology. The patient is stable and can be followed by Dr. Buckley at the retirement. [place], [place] DISCHARGE SUMMARY NAME: ABILIO DISLA UNIT #: [id number] ROOM: 409 DOCTOR: SHRUTHI EPPS MD BIRTHDATE: [birth year] SHRUTHI EPPS MD CM:LUCIA 0 03 SHRUTHI EPPS MD 05/30/19 100 interface
[2019-05-24 22:55] VITALS: BP 132/72
[2019-05-24 23:53] LABS: BASO % 0.4 % (0.0-1.0); EOS # 0.3 10*3/uL (0.0-0.4); EOS % 2.8 % (1.0-4.0); HEMATOCRIT 44.3 % (37.0-47.0); HEMOGLOBIN 14.1 g/dl (12.0-16.0); LYMPH # 3.2 10*3/uL (1.3-4.4); LYMPH % 34.4 % (27.0-41.0); MEAN CORPUSCULAR HGB 28.3 pg (27.0-31.0); MEAN CORPUSCULAR HGB CONC 31.8 g/dl (33.0-37.0); MEAN PLATELET VOLUME 10.5 fl (9.6-12.3); MONO # 0.8 10*3/uL (0.1-1.0); MONO % 8.7 % (3.0-9.0); NEUT % 53.5 % (47.0-73.0); PLATELET COUNT AUTOMATED 239 10*3/uL (130-400); RED BLOOD COUNT 4.98 10*6/uL (4.10-5.10); RED CELL DISTRI WIDTH 13.4 % (0-14.5); WHITE BLOOD COUNT 9.3 10*3/uL (4.8-10.8)
[2019-05-25] VITALS: BP 158/80
[2019-05-25 00:11] LABS: ALBUMIN 3.5 gm/dl (3.1-4.5); ALKALINE PHOSPHATASE 115 U/L (45-117); BUN 12 mg/dl (7-24); CHLORIDE 109 mmol/L (98-107); PHOSPHOROUS 2.4 mg/dL (2.5-4.9); POTASSIUM 3.4 mmol/L (3.5-5.1); SGOT/AST 14 IU/L (3-35); SGPT/ALT 18 U/L (12-78); SODIUM 143 mmol/L (136-145); TOTAL PROTEIN 7.3 gm/dL (6.4-8.2)
[2019-05-25 00:13] LABS: TROPONIN I < 0.015 ng/ml (<0.045)
[2019-05-25 03:04] LABS: BILIRUBIN NEGATIVE (NEGATIVE); BLOOD 1+ (NEGATIVE); CLARITY SL CLOUDY (CLEAR); COLOR YELLOW (YELLOW); GLUCOSE NEGATIVE (NEGATIVE); KETONE NEGATIVE (NEGATIVE); LEUKO ESTERASE 3+ (NEGATIVE); NITRITE POSITIVE (NEGATIVE); UROBILINOGEN 0.2 E.U./dl (0.2-1.0)
[2019-05-25 03:10] LABS: BACTERIA 3+; WBC 21-30 wbc/hpf (0-5)
[2019-05-25] MEDS ORDERED: SEROQUEL25 MG PO (05:16)
[2019-05-25 08:00] VITALS: BP 138/70
[2019-05-25 16:00] VITALS: BP 170/52
[2019-05-25 20:00] VITALS: BP 147/61
[2019-05-26 06:46] LABS: BUN 9 mg/dl (7-24); CHLORIDE 113 mmol/L (98-107); CREATININE 0.83 mg/dL (0.55-1.02); POTASSIUM 3.7 mmol/L (3.5-5.1); SODIUM 144 mmol/L (136-145)
[2019-05-26 08:00] VITALS: BP 150/84
[2019-05-26 16:00] VITALS: BP 160/68
[2019-05-26 20:00] VITALS: BP 140/97
[2019-05-27] VITALS: BP 160/91
[2019-05-27 08:00] VITALS: BP 153/92
[2019-05-27 12:00] VITALS: BP 169/87
[2019-05-27 16:00] VITALS: BP 171/83
[2019-05-27 20:00] VITALS: BP 137/72
[2019-05-28 05:59] LABS: BUN 7 mg/dl (7-24); CHLORIDE 112 mmol/L (98-107); CREATININE 0.64 mg/dL (0.55-1.02); POTASSIUM 3.6 mmol/L (3.5-5.1); SODIUM 146 mmol/L (136-145)
[2019-05-28 06:07] LABS: BASO % 0.5 % (0.0-1.0); EOS # 0.3 10*3/uL (0.0-0.4); EOS % 4.7 % (1.0-4.0); HEMATOCRIT 40.1 % (37.0-47.0); HEMOGLOBIN 12.9 g/dl (12.0-16.0); LYMPH # 2.2 10*3/uL (1.3-4.4); LYMPH % 34.2 % (27.0-41.0); MEAN CELL VOLUME 89.3 fl (81.0-99.0); MEAN CORPUSCULAR HGB 28.7 pg (27.0-31.0); MEAN CORPUSCULAR HGB CONC 32.2 g/dl (33.0-37.0); MONO # 0.7 10*3/uL (0.1-1.0); MONO % 11.1 % (3.0-9.0); NEUT # 3.2 10*3/uL (2.3-7.9); NEUT % 49.3 % (47.0-73.0); PLATELET COUNT AUTOMATED 219 10*3/uL (130-400); RED BLOOD COUNT 4.49 10*6/uL (4.10-5.10); RED CELL DISTRI WIDTH 13.6 % (0-14.5); WHITE BLOOD COUNT 6.4 10*3/uL (4.8-10.8)
[2019-05-28 08:00] VITALS: BP 167/95
[2019-05-28 12:00] VITALS: BP 147/86
[2019-05-28 16:00] VITALS: BP 125/66
[2019-05-29] VITALS: BP 135/76
[2019-05-29 08:00] VITALS: BP 144/80
[2019-05-29 16:00] VITALS: BP 142/88
[2019-05-29 20:00] VITALS: BP 143/75
[2019-05-30] VITALS: BP 133/63
[2019-05-30 08:00] VITALS: BP 167/77
[2019-05-30] MEDS ORDERED: AMLODIPINE BESYL5 MG PO (08:09)
== END 2019-05-30 13:10 | disposition other institution (70) | DRG 689 ==
LOC: ED 22:49 → 4E 05-25 03:49 → EDHOLD 05-25 03:49 → 4E 05-25 04:13
PROVIDERS: Internal Medicine; ADMIT Internal Medicine
DX: N39.0 Urinary tract infection, site not specified (principal); G93.41 Metabolic encephalopathy; J44.9 Chronic obstructive pulmonary disease, unspecified; G30.1 Alzheimer's disease with late onset; F02.80 Dementia in other diseases classified elsewhere, unspecified severity, without behavioral disturbance, psychotic disturbance, mood disturbance, and anxiety; B96.20 Unspecified Escherichia coli [E. coli] as the cause of diseases classified elsewhere; E87.6 Hypokalemia; R62.7 Adult failure to thrive; E03.9 Hypothyroidism, unspecified; F41.1 Generalized anxiety disorder; I10 Essential (primary) hypertension; G47.00 Insomnia, unspecified; Z79.899 Other long term (current) drug therapy

== ENCOUNTER 2019-06-07 05:10 | Inpatient (IN) | payer MEDICARE, OTHER ==
[~2019-06-07] VITALS: Ht 157.4 cm; Wt 72.6 kg
--- NOTE | ~2019-06-07 | PR ---
[place], [place] [facility]GRESS NOTE [id number] UN[facility] #: [id number] ROOM: 310 DOCTOR: OLEG CISNEROS MD BIRTHDATE: [birth year] DOS: 06/08/2019 SUBJECTIVE: The patient is feeling somewhat better. OBJECTIVE: VITAL SIGNS: Blood pressure 139/74, heart rate of 86 beats per minute, breathing 17 times per minute, temperature 98 degrees Fahrenheit. GENERAL APPEARANCE: The patient is alert and oriented x 3, in no visible distress. HEENT AND NECK: Exam within normal limits. CARDIOVASCULAR SYSTEM: Heart rate is regular in rate and rhythm. S1 and S2 normally audible. LUNGS: Clear to auscultation. ABDOMEN: Soft, nontender. No obvious organomegaly. Bowel sounds are present. EXTREMITIES: Without significant cyanosis or edema. IMPRESSION: 1. The patient with late onset Alzheimer's type dementia, is being treated with Exelon patch. 2. Urinary tract infection. The patient is symptomatic, although urine cultures were negative. 3. 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 Mei and treated with rivastigmine and memantine. The patient also on Depakote and Zyprexa. 4. Fungal infection of the skin folds treated with nystatin and fluconazole. 5. Bipolar disorder. The patient remains on Depakote. 6. Chronic primary insomnia, to be treated and controlled. 7. Hypothyroidism, replaced with levothyroxine. OLEG CISNEROS MD CM:PNTRANS [id number] OLEG CISNEROS MD 06/09/19 0324 interface
--- NOTE | ~2019-06-07 | PR ---
[place], [place] PROGRESS NOTE NAME: ABILIO DISLA UNIT #: [id number] ROOM: 310 DOCTOR: OLEG CISNEROS MD BIRTHDATE: [birth year] DOS: 06/13/2019 SUBJECTIVE: The patient continues to improve and she is sleeping much better. Feels very happy. OBJECTIVE: VITAL SIGNS: Blood pressure 132/82, heart rate 90 beats per minute, breathing 18 times per minute, temperature 98 degrees Fahrenheit. GENERAL APPEARANCE: The patient is alert and oriented x 3, in no visible distress. HEENT AND NECK: Exam within normal limits. CARDIOVASCULAR SYSTEM: Heart rate is regular in rate and rhythm. S1 and S2 normally audible. LUNGS: Clear to auscultation. ABDOMEN: Soft, nontender. No obvious organomegaly. Bowel sounds are present. EXTREMITIES: Without significant cyanosis or edema. IMPRESSION: 1. The patient with late onset Alzheimer's type dementia with behavioral disturbances, now better controlled with memantine and rivastigmine. 2. Behavioral issues with Alzheimer's type dementia, now treated with Depakote. The patient is sleeping much better with this treatment. 3. Hypothyroidism, treated with levothyroxine. 4. POLLEN allergies, treated and asymptomatic with Flonase. 5. Vitamin D deficiency, replaced with supplements. 6. Chronic primary insomnia, now controlled with Depakote. 7. Chronic constipation, treated and controlled with Colace and MiraLax. 8. Hypothyroidism, replaced with levothyroxine. OLEG CISNEROS MD CM:PNTRANS [phone] OLEG CISNEROS MD 06/13/19 2218 interface
--- NOTE | ~2019-06-07 | WRIGHTHP ---
[place], [place] PATIENT HISTORY AND PHYSICAL EXAM NAME: ABILIO DISLA UNIT #: [id number] ROOM: 312 DOCTOR: DENEEN SEBASTIAN MD BIRTHDATE: [birth year] DOS: 06/07/2019 CHIEF COMPLAINT: "I am here because I have a yeast infection." HISTORY OF PRESENT ILLNESS: This is an 84-year-old white female who is a resident of [facility] in [place], [place]. The patient presented to the Emergency Room at [facility] with extreme mood lability and verbal and physical aggressiveness. She has been increasingly resistive to care. She has been physically aggressive towards staff and other residents. She has been putting herself and others at significant risk of harm and because of that the facility brought her to the Emergency Room to be evaluated. She subsequently is being admitted now to rule out organic factors and to stabilize on medication. PAST MEDICAL HISTORY: Remarkable for hypertension, COPD, GERD, TIA, hypothyroidism and dementia. SOCIAL HISTORY: She does not smoke cigarettes, use illicit drugs or drink alcohol. ALLERGIES: She lists no known allergies. STRENGTHS: Good verbal skills. WEAKNESSES: Cognitive decline, poor coping skills. MENTAL STATUS: She is alert and oriented to person, possibly place, but not time. Mood this morning was fairly euthymic, although she was very confused and disjointed in her thinking. She was fragmented and was not able to fully carry on a conversation at times. For the most part, she was pleasant and smiled readily and voiced no complaints other than her yeast infection. She does process conversation slowly and short term memory is poor. DIAGNOSES: Intermittent explosive disorder, Alzheimer's dementia. PLAN: Routine screening examination reveals her to have a vitamin D level of 23.6, which is low. I will augment with vitamin D 5000 international units daily. I have discontinued her donepezil in lieu of Exelon patch 4.6 mg a day, which I will augment with Namenda 5 mg a day. Given her history of mood lability and agitation, I will start Depakote 250 mg 3 times a day. We will engage in individual and ray milieu activity, returning to the least restrictive environment when psychiatrically stable. [place], [place] PATIENT HISTORY AND PHYSICAL EXAM NAME: ABILIO DISLA UNIT #: [id number] ROOM: [facility] DOCTOR: DENEEN SEBASTIAN MD BIRTHDATE: [birth year] DENEEN SEBASTIAN MD CM:HISPHYS:PATIENT HISTORY AND PHYSICAL EXAMINATION 0 DENEEN SEBASTIAN MD 06/07/19 0909 interface
--- NOTE | ~2019-06-07 | PR ---
[place], [place] PROGRESS NOTE NAME: [facility]LA [facility]: [id number] UNIT #: [id number] ROOM: 310 DOCTOR: DENEEN SEBASTIAN MD BIRTHDATE: [birth year] DOS: 06/12/2019 CHIEF COMPLAINT: "Oh you, Dr. Sebastian it is nice to meet you." SUMMARY OF THE VISIT: The patient was interviewed in the dining room where she was finishing her breakfast. She asked me my name when I told her, about 5 minutes later into the conversation, she re-asked me my name. There does seem to be definitely a cognitive disjointed this here; however, she was bright, pleasant and smiled readily. She reported to me that she slept well and feels like she is eating well and overall feels bright and pleasant. Outwardly, there was no agitation, no aggression, no mood lability, no sedation or somnolence. MENTAL STATUS: She is alert and oriented to person, place, but not time. Mood does seem to be trending towards euthymia. Affect is more appropriate. There is no horacio, hypomania or gross psychotic symptoms. Short-term memory does have gaps. PLAN: I will maximize out her Namenda, bringing the dose to 10 mg b.i.d. as it augments the effectiveness of the Exelon patch. We will continue to engage in individual and ray milieu activity, returning to the least restrictive environment when psychiatrically stable. DENEEN SEBASTIAN MD CM:PNTRANS DENEEN SEBASTIAN MD 06/12/1941 interface
--- NOTE | ~2019-06-07 | PR ---
[place], [place] PROGRESS NOTE NAME: ABILIO DISLA UNIT #: [id number] ROOM: 310 DOCTOR: DENEEN SEBASTIAN MD BIRTHDATE: [birth year] DOS: 06/13/2019 CHIEF COMPLAINT: "I am feeling better, thank you, and what's your name again." SUMMARY OF THE VISIT: The patient was interviewed as she was sitting in the dining area. She had already eaten her breakfast. She engaged readily in conversation, but again asked me what my name was she reports that she has forgotten. She smiled readily and notes that she is feeling better than when she first came in. She is anxious to go back to [facility] and states she likes it there. MENTAL STATUS: She is alert and oriented to person, place, but only approximate to time. Mood does seem to be more euthymic. Affect is more appropriate. There is no horacio, hypomania, or psychosis. Short-term memory has gaps, otherwise she is intact. PLAN: Her valproic acid level is low at 31.9. I will go ahead and double the dose from 250 mg 3 times a day to 500 mg 3 times a day, attempting to bring the dose into a range of 60-80. We will continue to engage in individual and ray milieu activity, returning to the least restrictive environment when psychiatrically stable. DENEEN SEBASTIAN MD CM:PNTRANS [id number] DENEEN SEBASTIAN MD 06/13/19 1403 interface
--- NOTE | ~2019-06-07 | CON ---
[place], [place] REPORT OF CONSULTATION NAME: ABILIO DISLA UNIT #: [id number] ROOM: 310 DOCTOR: OLEG CISNEROS MD BIRTHDATE: [birth year] DOS: HISTORY OF PRESENT ILLNESS: An 84-year-old female who presently admitted to Behavioral Health Unit. PAST MEDICAL HISTORY: She has a past medical history of: 1. Generalized adult failure to thrive. 2. Chronic primary insomnia. 3. Chronic obstructive pulmonary disease. 4. Hypothyroidism. 5. Benign essential hypertension. 6. Generalized anxiety disorder. 7. Late onset Alzheimer's type dementia. 8. Hypothyroidism. 9. Gastroesophageal reflux disease and esophagitis. The patient was brought in to the Emergency Department at [facility] Emergency Department and was seen by Dr. Ford for very labile mood, verbal and physically aggressive, weakness and resistance to medical care. She was physically aggressive towards nursing staff, putting them at harm risk. A medical workup in the ER was negative for any infection or any other abnormality and she was admitted to Behavioral Health Unit for intermittent explosive disorder associated with late onset Alzheimer's type dementia. No chest pain or shortness of breath, no, GI or urinary symptoms except for suprapubic pains and burning in the urine. REVIEW OF SYSTEMS: RESPIRATORY: No increasing shortness of breath. GASTROINTESTINAL: No nausea, vomiting, diarrhea, constipation. CARDIOVASCULAR: No chest pain or palpitations. FAMILY HISTORY: Noncontributory. PRESENT MEDICATIONS: Anoro inhaler, meropenem IV, Flonase for nasal allergies, MiraLax 17 grams daily, and levothyroxine. PHYSICAL EXAMINATION: GENERAL: Awake, alert, oriented, but a poor historian, in no visible distress. She is complaining of burning with urination and suprapubic pains. VITAL SIGNS: Blood pressure 142/79, heart rate 93 beats per minute, breathing 17 times per minute, temperature 98 degrees Fahrenheit. HEENT AND NECK: Extraocular movements are intact. Sclerae are anicteric. Oral mucosa is moist and clean. No obvious facial weakness. Neck is supple without any lymphadenopathy. No thyromegaly. No JVD. No carotid arterial bruits. LUNGS: Clear to auscultation. No wheezing. No rhonchi. CARDIOVASCULAR SYSTEM: Heart rate is regular in rate and rhythm. S1 and S2 normally audible. No significant murmur or any other abnormal cardiac sounds. ABDOMEN: Soft, nontender. No obvious organomegaly. Bowel sounds are present. No obvious herniation. [place], [place] REPORT OF CONSULTATION NAME: ABILIO DISLA UNIT #: [id number] ROOM: 310 DOCTOR: OLEG CISNEROS MD BIRTHDATE: [birth year] EXTREMITIES: Without significant cyanosis or edema. Warm to touch. CENTRAL NERVOUS SYSTEM: Alert and oriented x 3. Cranial nerves II-XII are intact. Speech is normal. The patient is able to move all extremities. Normal muscle strength. Deep tendon reflexes are equal on both sides. Plantars were downgoing. IMPRESSION: 1. The patient with urinary tract infection with 16-20 wbc's on urine culture. Urine cultures are pending. I will continue her meropenem and treat her according to urine culture results. 2. 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 3. Hypothyroidism, replaced with levothyroxine continued. 4. Benign essential hypertension. Blood pressures to be monitored and treated accordingly. 5. Centrilobular emphysema to be treated with bronchodilators as needed. 6. Generalized adult failure to thrive. The patient is to work with physical therapy. 7. Significant fungal infection of the skin folds and obesity to be treated with local care and Diflucan. Thank you, Dr. Mei for asking me to see the patient. OLEG CISNEROS MD CM:CONSTR:REPORT OF CONSULTATION 1105 06/08/19 0040 interface
--- NOTE | ~2019-06-07 | PR ---
[place], [place] PROGRESS NOTE NAME: [facility]: [id number] UNIT #: [id number] ROOM: 310 DOCTOR: OLEG CISNEROS MD BIRTHDATE: [birth year] DOS: 06/09/2019 SUBJECTIVE: The patient is not complaining of has many urinary symptoms this morning. OBJECTIVE: GENERAL APPEARANCE: The patient is alert and oriented x 3, in no visible distress. VITAL SIGNS: Blood pressure 138/83, heart rate of 71 beats per minute, breathing 18 times per minute, temperature 98.4 degrees Fahrenheit. HEENT AND NECK: Exam within normal limits. CARDIOVASCULAR SYSTEM: Heart rate is regular in rate and rhythm. S1 and S2 normally audible. LUNGS: Clear to auscultation. ABDOMEN: Soft, nontender. No obvious organomegaly. Bowel sounds are present. EXTREMITIES: Without significant cyanosis or edema. IMPRESSION: 1. The patient with late onset Alzheimer's type dementia on an increased dose of Exelon and Namenda. Dr. Mei is following. 2. 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 The patient is also on Depakote and Zyprexa. 3. Fungal infection in skin folds of inguinal area treated with nystatin powder. 4. Bipolar disorder. The patient treated with Depakote. 5. Chronic primary insomnia, treated with Ambien. 6. Hypothyroidism, replaced with levothyroxine. 7. Recent complaints of urinary tract infection, which is asymptomatic now. Urine cultures showed contamination. The patient is asymptomatic now and there were only 5-10 wbc's in her urinalysis. OLEG CISNEROS MD CM:PNTRANS [phone] OLEG CISNEROS MD 06/09/19 1444 interface
--- NOTE | ~2019-06-07 | DS ---
[place], [place] DISCHARGE SUMMARY NAME: ABILIO DISLA UNIT #: [id number] ROOM: 310 DOCTOR: DENEEN SEBASTIAN MD BIRTHDATE: [birth year] DOS: 06/14/2019 CHIEF COMPLAINT: "I am here because I have a yeast infection." HISTORY OF PRESENT ILLNESS: This is an 84-year-old white female who is a resident of [facility] in [place], [place]. The patient had originally presented to the Emergency Room at [facility] with extreme mood lability in both verbal and physical aggressiveness. The patient has been increasingly resistive to care. She has been physically aggressive towards staff and other residents. She has put herself and others at significant risk of harm. She was initially admitted to the medical floor because of a UTI, continued to be very aggressive on the medical floor and ultimately then transferred to the psychiatric unit for further treatment. SUMMARY OF HOSPITAL COURSE: The patient was admitted to the unit where she was started on Exelon patch and her Aricept was discontinued. Exelon patch was gradually increased from 4.6 to its maximum dose of 13.3 mg a day. This was subsequently augmented with Namenda and the dose of the Namenda was gradually increased to its maximum dose of 10 mg b.i.d. Additionally, her antipsychotic was discontinued and instead Depakote was utilized to decrease mood lability with excellent results. The patient gradually improved over her week-long stay to the point where she was verbalizing a willingness and readiness to return back to [facility]. She was discharged then back to [facility] on 06/14/2019. MENTAL STATUS AT DISCHARGE: The patient is alert and oriented to person, place, but not time. Mood is euthymic. Affect appropriate. There is no horacio, hypomania or psychosis. She does process slowly and short term memory continues to be problematic. FINAL DIAGNOSES: Intermittent explosive disorder and Alzheimer's dementia. DISPOSITION: All of her prescriptions have been printed and will be sent with her. At the time of discharge, she was psychiatrically and medically stable. [place], [place] DISCHARGE SUMMARY NAME: ABILIO DISLA UNIT #: [id number] ROOM: 310 DOCTOR: DENEEN SEBASTIAN MD BIRTHDATE: [birth year] DENEEN SEBASTIAN MD CM:LUCIA 2 7 DENEEN SEBASTIAN MD 06/14/19934 interface
--- NOTE | ~2019-06-07 | PR ---
[place], [place] PROGRESS NOTE [id number] UNIT #: [id number] ROOM: 310 DOCTOR: OLEG CISNEROS MD BIRTHDATE: [birth year] DOS: 06/14/2019 SUBJECTIVE: The patient at [facility], going home today. The patient with brief psychotic disorder, improved related to late onset Alzheimer's type dementia. OBJECTIVE: GENERAL APPEARANCE: The patient is alert and oriented x 3, in no visible distress. VITAL SIGNS: Blood pressure 130/78, heart rate 88 beats per minute, breathing 18 times per minute, temperature 98.3 degrees Fahrenheit. HEENT AND NECK: Exam within normal limits. CARDIOVASCULAR SYSTEM: Heart rate is regular in rate and rhythm. S1 and S2 normally audible. LUNGS: Clear to auscultation. ABDOMEN: Soft, nontender. No obvious organomegaly. Bowel sounds are present. EXTREMITIES: Without significant cyanosis or edema. IMPRESSION: 1. Explosive disorder associated with late onset Alzheimer's type dementia, now well controlled on higher dose of Exelon patch, Namenda and Depakote. The patient is feeling well and she also sleeping better. 2. Chronic primary insomnia. Finally, the patient is sleeping much better with Depakote that she is taking. 3. Fungal skin infections and moist skin folds treated with fluconazole and nystatin powder. 4. Chronic constipation, treated and controlled with Colace and MiraLax. 5. Hypothyroidism, replaced with levothyroxine. 6. The patient's mood lability, verbal and physical aggressiveness has all resolved with treatment and she is going back to [facility]. DISCHARGE MEDICATIONS: From medical point of view have been continued along with new psych medicines which were given by Dr. Mei. OLEG CISNEROS MD CM:PNTRANS [id number] OLEG CISNEROS MD 06/14/19 3379 interface
--- NOTE | ~2019-06-07 | PR ---
[place], [place] PROGRESS NOTE NAME: ABILIO DISLA UNIT #: [id number] ROOM: 310 DOCTOR: DENEEN SEBASTIAN MD BIRTHDATE: [birth year] DOS: 06/09/2019 CHIEF COMPLAINT: "Morning." SUMMARY OF THE VISIT: The patient was interviewed as she was resting in bed. It took me several times calling out her name and gently touching her shoulder for her to awake. When she did, she was confused, but pleasantly so. She was able to say good morning, but beyond that did not engage in much conversation. Nurses report that for the most part she has been pleasantly confused and there has been little to no acting out. She does outwardly seem to be tolerating the medication well and I do not see the presence of any sedation, somnolence, extrapyramidal symptoms or tardive dyskinesia. MENTAL STATUS: She remains alert and oriented to self only. For the most part, she is pleasant. Mood does seem to be fairly euthymic. Affect appropriate. Responses are short and simple. There is no hypomania, horacio or psychosis. She does process conversation slowly and short term memory continues to be very problematic. PLAN: I will go ahead and increase her Namenda from 5 mg a day to 5 mg twice a day. Over the next several days, I plan to increase both the Exelon patch and then the Namenda gradually to bring them into their therapeutic range. We will continue to engage in individual and ray milieu activity, returning to the least restrictive environment when psychiatrically stable. DENEEN SEBASTIAN MD CM:PNTRANS [phone] DENEEN SEBASTIAN MD 06/09/19 0951 interface
--- NOTE | ~2019-06-07 | PR ---
[place], [place] PROGRESS NOTE [id number] UNIT #: [id number] ROOM: 310 DOCTOR: OLEG CISNEROS MD BIRTHDATE: [birth year] DOS: 06/12/2019 SUBJECTIVE: The patient continues to feel better. Actually, her main complaint that she could not sleep well at night has improved and she is sleeping better now. OBJECTIVE: GENERAL APPEARANCE: The patient is alert and oriented x 3, in no visible distress. VITAL SIGNS: Blood pressure 137/81, heart rate 95 beats per minute, breathing 16 times per minute, temperature 98 degrees Fahrenheit. HEENT AND NECK: Exam within normal limits. CARDIOVASCULAR SYSTEM: Heart rate is regular in rate and rhythm. S1 and S2 normally audible. LUNGS: Clear to auscultation. ABDOMEN: Soft, nontender. No obvious organomegaly. Bowel sounds are present. EXTREMITIES: Without significant cyanosis or edema. IMPRESSION: 1. Late onset Alzheimer's type dementia, treated with memantine and rivastigmine. 2. Behavioral issues associated with late onset Alzheimer's type dementia, being followed and treated by Dr. Mei. The patient is on Depakote, now feeling better. She is also sleeping better. 3. Hypothyroidism, treated with levothyroxine. 4. Chronic constipation, treated and controlled with Colace and MiraLax. 5. Chronic primary insomnia, now better controlled with Depakote at night. 6. Vitamin D deficiency, replaced with supplements. 7. POLLEN allergies, treated and controlled with fluconazole. OLEG CISNEROS MD CM:PNTRANS [id number] OLEG CISNEROS MD 06/12/19 2339 interface
[~2019-06-07 05:10] MED LIST changes: +AMLODIPINE BESYL5 MG PO; +SEROQUEL25 MG PO
--- NOTE | 2019-06-07 05:23 | NUR ---
A 84, [facility], under the services of DENEEN Levin MD with a diagnosis of BRIEF PSYCHOTIC D/O Chief complaint is ALTERED MENTAL STATUS. Patient arrived via wheel chair from [facility]. Initial assessment completed. Vital signs taken and recorded. DENEEN LEVIN MD notified of admission to the unit. Orders received. See assessment for past medical history, medications and allergies. Patient oriented to unit. [facility]. visitation policy reviewed. Clothing/patient valuable form completed. SHAN ALLEN
[2019-06-07 05:30] VITALS: BP 156/72
[2019-06-07] MEDS ORDERED: MERREM IV1 GM IV (05:36)
[2019-06-07] MEDS ORDERED: Oscal,Oyster S500 MG PO (05:37)
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
[2019-06-07] MEDS ORDERED: VITAMIN C500 M8 PO (06:11)
--- NOTE | 2019-06-07 06:13 | NUR ---
SPOKE WITH DR CISNEROS. HE WILL BE IN TO SEE CLIENT AROUND 10AM. IF THERE IS ANYTHING WE NEED BEFORE THAT CALL OR TEXT HIM
[2019-06-07 06:44] LABS: ALBUMIN 3.4 gm/dl (3.1-4.5); BUN 12 mg/dl (7-24); CHLORIDE 109 mmol/L (98-107); CHOLESTEROL 147 mg/dL (<200); HDL CHOLESTEROL 52 mg/dl (40-60); POTASSIUM 3.2 mmol/L (3.5-5.1); SGPT/ALT 14 U/L (12-78); SODIUM 143 mmol/L (136-145)
--- NOTE | 2019-06-07 06:46 | NUR ---
PT CALM, PARTICIPATED IN ADMISSION ASSESSMENT, POOR HISTORIAN. INFORMATION TO COMPLETE ASSESSMENT PROVIDED FROM FACILITY. PATIENT ALERT AND ORIENTED TO SELF, APPROXIMATE TO PLACE, KNOWS SHE IS IN A HOSPITAL BUT STATES ITS CALLED "[facility]". ST/LT MEMORY DEFIFICTS NOTED. PT UNABLE TO COMPLETE ADMISSION PAPERWORK DUE TO COGNITION. SKIN ASSESSMENT COMPLETED, ESCORATION NOTED IN GROIN, INNER THIGH, AND BUTTOCKS AREA. NO OPEN AREAS OBSERVED. PT MOBILIZES SELF WITH A W/C, GAIT UNSTEADY, ASSIST X1. PT CONTINENT OF BOWEL AND BLADDER. PT DENIES SI/HI AND HALLUCINATIONS. NO NOTED RESPONDING TO INTERNAL STIMULI. NO PARANOIA/DELUSIONS OBSERVED. NO PHYSICAL COMPLAINTS VOICED. PLAN IS TO CONTINUE TO MONITOR MOOD AND BEHAVIORS. PROVIDE 1:1 WITH EMOTIONAL SUPPORT NEEDED. ENCOURAGE MEDICATION COMPLIANCE AND EDUCATE. MAINTAIN Q 15 MIN CHECKS.
[2019-06-07 06:54] LABS: ALKALINE PHOSPHATASE 101 U/L (45-117); LDL CHOLESTEROL 81 mg/dL (9-159); SGOT/AST 12 IU/L (3-35); TRIGLYCERIDES 72 mg/dl (<150); VLDL CHOLESTEROL 14 mg/dL (6-40)
[2019-06-07 06:55] LABS: THYROID STIM HORMONE (HS) 0.368 uIU/ml (0.358-4.75)
--- NOTE | 2019-06-07 07:17 | NUR ---
ABILIO DISLA [id number] Please refer to the physician's history and physical for past medical history, comorbid conditions, and allergies. Diagnosis: BRIEF PSYCHOTIC DISORDER Dimitrios Score: 17,AT RISK WOUND DESCRIPTIONS: Wound Number: 1 Location of the wound: right posterior upper thigh Type of wound: fungal Thickness: Partial Size: 0.6cm x 0.6cm x 0.1cm Tunneling: none Undermining: none Sinus Tract: none Presence of Exudate: none Amount: None Color: Red Odor: None Periwound Skin Appearance: Erythema Wound edges: approximated Pain (associated with wound): none at time of assessment but very ithcy How does patient state this happened? pt is unsure how this happened Wound Number: 2 Location of the wound: left buttocks Type of wound: fungal Thickness: Partial Size: 0.3cm x 0.3cm x 0.1cm Tunneling: none Undermining: none Sinus Tract: none Presence of Exudate: none Amount: None Color: Red Odor: None Periwound Skin Appearance: Normal Wound edges: approximated Pain (associated with wound): none at time of assessment How does patient state this happened? pt unsure how this happened Patient is dark red with satelitte areas noted to the border of bilateral groins, periarea, upper thighs and buttocks. No draiange at time of assessment. No odor at time of assessment. Patient complaining that areas is very itchy and sore at time of assessment. Surface the patient is resting on: Proform SKIN PREVENTION RECOMMENDATION: 1. Pressure redistribution support surface as appropriate 2. Elevate heels 3. Remove boots/TEDS every shift and reapply 4. Head of bed 30 degrees as tolerated 5. Assess nutrition and hydration 6. Manage moisture 7. Avoid the use of containment devices while in bed 8. Use absorptive products on surfaces limit layers of linens on bed 9. Turn and reposition every 1-2 hours in bed and every 1 hour in chair as tolerated 10. Weight shifts every 15 minutes while up in chair 11. Offloading with pillows or device to keep heels elevated off bed 12. Monitor skin at least every shift 13. Inspect under medical devices twice a day WOUND TREATMENT RECOMMENDATIONS: Cleanse bilateral groins, periarea, upper thighs and buttocks with soap and water pat area dry then apply nystatin cream every 8 hours. Wheelchair cushion when oob. May need po diflucan due to area being so involved and going from periarea to buttocks.
[2019-06-07 08:01] VITALS: BP 143/79
--- NOTE | 2019-06-07 08:18 | NUR ---
PHYSICAL THERAPY Nursing screen received and chart reviewed. Physical therapy referral received. Thank you. Delia Joshi,PT,DPT
--- NOTE | 2019-06-07 08:19 | NUR ---
Nursing screen and Occupational Therapy referral received. Thank you. Ayanna Saeed OTr/L
--- NOTE | 2019-06-07 08:30 | NUR ---
Treatment Plan meeting with Dr. Mei, RN, AT, and Detail Supervisor. Plan for discharge next week. Pt. will return to [facility].
--- NOTE | 2019-06-07 09:19 | NUR ---
PHYSICAL THERAPY Physical therapy evaluation complete, 3N. Full evaluation/details to follow. Low complexity evaluation (11471) per chart review and evalaution. PT to progress with transfers, gait, balance, and LE strength per POC. Recommend return to LTC facility at discharge. Thank you. Delia Joshi,PT,DPT.
--- NOTE | 2019-06-07 09:19 | NUR ---
Occupational Therapy evaluation completed on 3 with full eval to follow. Precautions include fall risk; 3N unit precautions, impulsive, right knee pain, moderate complexity level 88732 via chair review, testing and evaluation. Recommend OT per POC and return to LTC. Thank you. Ayanna Saeed OTR/L
--- NOTE | 2019-06-07 10:27 | NUR ---
Spoke with Dr. Buckley regarding po antifungal medication he stated he will see the patient and order if needed.
--- NOTE | 2019-06-07 11:44 | NUR ---
AM GROUP PT WAS PRESENT FOR MORNING GROUP THERAPY AND ATTEMPTED TO PARTICIPATE BUT WAS IN "TOO MUCH PAIN". PT WAS CALM BUT DISTRESSED. PT NURSE WAS NOTIFIED AND PT DOCTOR WAS IN TO SEE PT.
--- NOTE | 2019-06-07 14:43 | NUR ---
P: INTERMITTENT VERBAL ABUSIVE TO STAFF, HISTORY OF PHYSICAL AGRESSION TOWARD STAFF, URINARY TRACT INFECTION I: INTERACT WITH PATIENT TO ESTABLISH THERAPEUTIC RELATIONSHIP, REORIENT PT NEEDED TO UNIT, TOILET FREQUENTLY, PROVIDE PERICARE NEEDED, MONITOR FOR TRIGGERS. R: PT PLEASANT AND COOPERATIVE WITH CARE AT THIS TIME, RESTING IN BED, PT HAD COMPLAINT OF BACK PAIN AND WAS GIVEN TYLENOL FOR DISCOMFORT P: CONTINUE TO ASSIST PT WITH ADJUSTING WITH UNIT AT THIS TIME
--- NOTE | 2019-06-07 15:31 | NUR ---
PM GROUP/SOCIALIZING PT WAS PRESENT AND PARTICIPATED AT THE START OF GROUP BUT COMPLAINED OF BACK PAIN AND ASKED TO GO LAY DOWN. PT WAS TAKEN TO HER ROOM AND DID NOT RETURN. PT EXPRESSED NO ANXIETY OR AGITATION WHILE IN GROUP
[2019-06-07 19:22] VITALS: BP 145/70
--- NOTE | 2019-06-07 21:20 | NUR ---
UNABLE TO HOLD A FULL CONVERSATION. SHORT TERM MEMORY DEFICIT NOTED. REPEATS SAME CONVERSATION CONTINUALLY. INTERACTING WITH PEERS. NO OUTBURSTS THIS SHIFT SO FAR. EDUCATED ON MEDICATION. REORIENTED TO PLACE AND TIME. WILL CONTINUE TO MONITOR FOR MOOD/BEHAVIOR CHANGES.
--- NOTE | 2019-06-08 00:57 | NUR ---
24 HR chart check completed.
--- NOTE | 2019-06-08 04:52 | NUR ---
Upon discharge recommend patient to follow up for wound care in outpatient setting continue current wound care orders at discharging facility.
--- NOTE | 2019-06-08 05:16 | NUR ---
INCONTINENT FOR THE 3rd TIME TONIGHT. MASSIVE AMOUNTS OF URINE CLEANED UP. MELISSA AREA AND GROIN STILL GAULDED BUT IMPROVEMENT NOTED. SHORT TERM MEMORY DEFICITS NOTED. REORIENT EACH TIME WITH CLIENT
--- NOTE | 2019-06-08 05:56 | NUR ---
SLEPT APPROX 2 1/2 HRS
--- NOTE | 2019-06-08 07:00 | NUR ---
OT NOTE Pt was seen this A.M. 1:1 for 15 minute OT session with REGIONAL RECRUITER and nursing staff present for observation only. Upon arrival pt was supine in bed. Pt identified by name and and had no complaints at this time. Pt was treated in her room this date due to being under isolation. Pt transferred supine to sit EOB with Julia for assist with UB. While sitting EOB pt donned B socks and shoes with SBA and vebal prompts for attention to task. Sit to stand completed from bed level with Julia followed by functional mobility into the bathroom with Julia X 2 TRIPE FINISHER. There she stood sink side while washing her hands with Julia for assist with sequencing. Throughout pt presented with retrograde posture that required Julia to correct and required constant verbal prompts for standing tall. After aprox 2 minutes of static standing pt required a seated rest break due to quick onset of fatigue. Pt then sat while completing other grooming tasks with verbal prompts for attention to task. Pt was left sitting upright in her w/c in her room with body alarm on for safety and under [facility] staff supervision. Continue with rec D/C plan to return to [facility]. PERI Landin/Effie
--- NOTE | 2019-06-08 07:20 | NUR ---
PHYSICAL THERAPY Patient seen this am for therapy visit and was just awakening supine in bed upon therapist arrival. Patient reports no c/o's of pain and under room Isolation precautions and was Incontinent of Urine. Patient transfers supine to sit EOB with MIN A, tolerating a minute or so to fully awaken, then completed sit to stand transfer from low bed surface, MIN A x 1. Patient amublated 20'x 2 to bathroom and back with use of wh walker, Min/CGA, demonstrating Poor upright posture, decreased stride and slow randee. Patient also fatigues quickly requiring seated rest break between gait trials. Patient returned to her w/c and remained in room near doorway as breakfast tray arrived, under [facility] staff Supervision. Will continue per POC as tolerated, total treatment time 16 minutes. Indra Menendez, LOCKSTITCH SLEEVE MAKER
[2019-06-08 07:30] VITALS: BP 139/74
--- NOTE | 2019-06-08 08:30 | NUR ---
Treatment Plan meeting with Dr. Mei, RN, AT, and Sole Ruffer. Plan for discharge next week. Pt. will return to [facility] at discharge.
--- NOTE | 2019-06-08 11:00 | NUR ---
DR. RUIZ [id number] UNIT TO ASSESS PATIENT.
--- NOTE | 2019-06-08 11:35 | NUR ---
AM GROUP/EXERCISE PT WAS IN BED RESTING AT THE START OF MORNING GROUP THERAPY AND DECIDED NOT TO ATTEND STATING, "MY BACK IS STILL HURTING"
--- NOTE | 2019-06-08 13:35 | NUR ---
PATIENT IS ALERT AND ORIENT TO PERSON, PLACE AND STIUATION; RECALLED DATE 1962. MEMORY GAPS NOTED. DENIES ANY HALLUCINATIONS, DELUSIONS, HI/SI OR PAIN. INTERACTIVE WITH STAFF. CONTINUES ON CONTACT ISOLATION OF ESBL OF URINE. DR. WOMACK ON UNIT THIS MORNING AND NOTIFIED OF IV ANTIBOTICS COMPLETED FOR 06/07/19 AT THE [facility]. NEW ORDERS TO D/C ANTIBOTIC AND STRAIGHT CATH FOR UA/C&S. ONE PERSON ASSIST WITH ACTIVITIES OF DAILY LIVING, INCONTINENT OF BLADDER, CONTINENT OF BOWEL. SET UP FOR MEALS, INTAKES VARY. PATIENT HAS MIDLINE TO LEFT AC. MELISSA AREA CONTINUE TO BE RED, TREATMENT IN PLACE. PATIENT RESTING IN BED WITH EYES CLOSED, CALL LIGHT IN REACH, WITH BED ALARM ON. CONTINUE TO MONITOR FOR AGGRESSION; PROVIDE ONE ON ONE AND REDIRECTION NEEDED.
--- NOTE | 2019-06-08 15:34 | NUR ---
PM GROUP/ART AND MUSIC PT CHOSE NOT TO ATTEND AFTERNOON GROUP THERPAY. PT STAYED IN BED RESTING
--- NOTE | 2019-06-08 16:31 | NUR ---
Shift chart check completed.
[2019-06-08 19:30] VITALS: BP 141/68
--- NOTE | 2019-06-08 21:46 | NUR ---
Patient alert and oriented to person and place with confusion. Memory deficits noted. No signs of any hallucinations noted at this time. Patient repeats same conversation continuously. Patient compliant with medications without any difficulty. Patient isolative to her room this evening but interactive with staff. Patient pleasant and cooperative. Provided 1:1 for emotional support. Redirected/reoriented when needed/appropriate. Plan to continue to encourage medication compliance and continue to provide emotional support. Also redirect/reorient when needed/appropriate. Q 15 minute safety checks continued and maintained. See [facility] flowsheet for further documentation.
--- NOTE | 2019-06-09 00:13 | NUR ---
24 HR chart check completed.
--- NOTE | 2019-06-09 05:10 | NUR ---
Patient slept approx. 7 hours throughout shift. Q 15 minute safety checks continued and maintained.
--- NOTE | 2019-06-09 06:35 | NUR ---
URINE SPECIMEN OBTAINED VIA STRAIGHT CATH. ATTEMPT X 1. STERILE TECHNIQUE USED. URINE CLOUDY YELLOW WITH STRONG ODOR. PATIENT OUTPUT OF 100ML. PATIENT TOLERATED WITHOUT DIFFICULTY. PATIENT INCONTINENT PRIOR TO STRAIGHT CATH
--- NOTE | 2019-06-09 07:05 | NUR ---
PHYSICAL THERAPY Patient was in bed sound asleep this am when approached for therapy and when awakened became upset. Patient stated "Let me sleep" and rolled back over on her side. Will continue per POC as able at a later time. Indra Menendez, INWEAVER
[2019-06-09 07:54] VITALS: BP 138/83
--- NOTE | 2019-06-09 08:30 | NUR ---
Patient resting quietly with no c/o discomfort. Respirations easy and regular. Vital signs stable. No overt distress. DR. SEBASTIAN ON UNIT TO ASSESS PT. REPORT GIVEN. TODD GANT
--- NOTE | 2019-06-09 08:30 | NUR ---
Treatment Plan meeting with Dr. Mei, RN, AT, SW and Redye Hand. Plan for discharge Next week. Pt. will return to [facility].
[2019-06-09 09:53] LABS: BILIRUBIN NEGATIVE (NEGATIVE); BLOOD NEGATIVE (NEGATIVE); CLARITY SL CLOUDY (CLEAR); COLOR YELLOW (YELLOW); GLUCOSE NEGATIVE (NEGATIVE); KETONE 1+ (NEGATIVE); LEUKO ESTERASE NEGATIVE (NEGATIVE); NITRITE NEGATIVE (NEGATIVE); PH 7.5 (5.0-9.0); UROBILINOGEN 0.2 E.U./dl (0.2-1.0)
[2019-06-09 10:36] LABS: RBC 16-20 rbc/hpf (0-2)
[2019-06-09 10:37] LABS: BACTERIA 2+
--- NOTE | 2019-06-09 11:36 | NUR ---
AM GROUP PT CHOSE NOT TO ATTEND MORNING GROUP THERAPY. PT STAYED IN ROOM IN BED
--- NOTE | 2019-06-09 11:57 | NUR ---
PT ALERT AND ORIENTED TO PERSON AND PLACE. DENIES ANY SI/HI OR DELSIONIONS AT THIS TIME. INTERACTIVE WITH STAFF AND PLEASANT. REMAINS IN CONTACT ISOLATION. MEDICATION COMPLIANT. SHORT/MCC MEMORY DEFICIT, REORIENTS WITHOUT DIFFICULTY, BUT REMAINS CONFUSED. INTERACTIVE WITH ONE ON ONE, GOOD APPETITE, CONTINUE TO MONIR 15 MIN CHECKS AND PROVID ONE ON ONE AND STIMULITION WHILE ON ISOLATION
--- NOTE | 2019-06-09 12:48 | NUR ---
Spoke with [employer] Source Tool Die Maker Wendy Casas. Notified of discharge Plans for next week. Will Notify Wendy upon discharge and return to facility.
--- NOTE | 2019-06-09 13:12 | NUR ---
PHYSICAL THERAPY CO-SIGN I approve of the Physical Therapy notes written above. BRONWYN MARS PT,DPT
--- NOTE | 2019-06-09 15:39 | NUR ---
PM GROUP/KAYLEIGH PT DID NOT ATTEND AFTERNOON GROUP THERAPY. PT STAYED IN BED NAPPING
[2019-06-09 19:52] VITALS: BP 136/81
--- NOTE | 2019-06-10 00:12 | NUR ---
PATIENT ALERT AND ORIENTED TO PERSON ONLY. PT STATED THAT SHE WAS AT [facility] AND THOUGHT THE YEAR WAS [birth year]. ST/LT MEMORY DEFICITS NOTED. REORIENTAITON PROVIDED AND EFFECTIVE. MOOD STABLE AND PLEASANT. INTERACTIVE WITH STAFF. REMAINS IN CONTACT ISOLATION. DENIES HALLUCINATIONS, SI/HI OR PAIN. NO S/S OF INTERACTING WITH INTERNAL STIMULI. NO S/S OF DELUSIONAL THOUGHT PROCESS NOTED. RESPS EVEN AND UNLABORED ON ROOM AIR. NO S/S OF DISTRESS NOTED. INCONTINENT OF URINE, ONE ASSIST WITH ADLS AND CARE PROVIDED. MEDICATION COMPLIANT WITH EDUCATION PROVIDED. MELISSA AREA PINK, COMPLIANT WITH SCHEDULED CREAMS. FALLING STAR PROGRAM IN PLACE. Q15 MINUTE CHECKS MAINTAINED FOR SAFETY.
--- NOTE | 2019-06-10 01:25 | NUR ---
24 HR chart check completed.
--- NOTE | 2019-06-10 05:29 | NUR ---
PATIENT MONITORED ON Q15 MINUTE CHECKS THROUGHOUT THE NIGHT FOR SAFETY. PATIENT NOTED TO HAVE SLEPT APPROXIMATELY 6.5 HOURS INTERMITTENTLY.
[2019-06-10 07:50] VITALS: BP 153/94
--- NOTE | 2019-06-10 09:38 | NUR ---
DR. WOMACK NOTIFIED OF PATRIZIA RYAN TO D/C CONTACT ISOLATION PRECAUTIONS.
--- NOTE | 2019-06-10 11:31 | NUR ---
AM GROUP/EXERCISES/DISCUSSION/ART PT ATTENDED AND PARTICIPATED THROUGH SOCIALIZATION. PT LOOKED THORUGH A PICTURE BOOK WITH RIPSAW OPERATOR WELL. PT KEPT STATING "I JUST DON'T FEEL TOO WELL AND DON'T DO MUCH OF ANYTHING THESE DAYS" PT DID NOT EXPRESS ANY AGITATION OR ANXIETY AT THIS TIME. PT WILL CONTINUE TO BE ENCURAGED TO ATTEND AND PARTICIPATE IN FUTURE GROUP SESSIONS.
--- NOTE | 2019-06-10 15:04 | NUR ---
Shift chart check completed.
--- NOTE | 2019-06-10 15:37 | NUR ---
PM GROUP/ASIYA/LEISURE SKILLS PT ATTENDED FIRST PART OF GROUP AND OBSERVED. PT THEN STATES "I'M JUST SO TIRED I NEED TO LAY DOWN" PT LEFT ACTIVITY'S TO NOT RETURN. PT WILL CONTINUE TO BE ENCOURAGED TO ATTEND AND PARTICIPATE IN FUTURE GROUP SESSIONS.
--- NOTE | 2019-06-10 16:58 | NUR ---
PATIENT IS ALERT TO PERSON AND SITUATION WITH CONFUSION, RECALLS YEAR 1964. LONG/SHORT TERM MEMORY DEFICITS. MOOD IS STABLE, NO VERBAL OR PHYSICAL AGGRESSION. DENIES ANY HALLUCINATIONS, DELUSIONS, HI/SI OR PAIN. INTERACTIVE WITH STAFF AND OTHER PATIENTS. PARTICIPATED IN GROUP SESSION. MEDICATION COMPLIANTS. Q 15 MINUTE SAFETY CHECKS. MEDICATION COMPLIANT. MIDLINE IN LEFT AC FLUSHED WITHOUT DIFFICULTY. CONTINUE TO MONITOR FOR AGGRESSION; PROVIDE ONE ON ONE AND REDIRECTION.
[2019-06-10 19:50] VITALS: BP 145/89
--- NOTE | 2019-06-10 21:19 | NUR ---
Patient alert and oriented to person and place with confusion. Memory deficits noted. No signs of any hallucinations noted at this time. Patient repeats same conversation continuously. Patient compliant with medications without any difficulty. Patient in dining room for snack time but was isolative from other patients. Patient pleasant and cooperative. Provided 1:1 for emotional support. Redirected/reoriented when needed/appropriate. Plan to continue to encourage medication compliance and continue to provide emotional support. Also redirect/reorient when needed/appropriate. Q 15 minute safety checks continued and maintained. See [facility] flowsheet for further documentation.
--- NOTE | 2019-06-11 00:49 | NUR ---
24 HR chart check completed.
--- NOTE | 2019-06-11 05:25 | NUR ---
Patient slept approx. 4 1/2 hours throughout shift. Q 15 minute safety checks continued and maintained.
[2019-06-11 07:18] VITALS: BP 137/86
--- NOTE | 2019-06-11 12:52 | NUR ---
AM GROUP/GAMES PT CHOSE NOT TO ATTEND STATING "I DONT FEEL GOOD, I MIGHT COME DOWN IN A LITTLE BIT" PT WILL CONTINUE TO BE ENCOURAGED TO ATTEND AND PARTICIPATE TO BEST OF PT ABILITY.
--- NOTE | 2019-06-11 16:54 | NUR ---
ALERT AND ORIENTED TO PERSON AND PLACE. STABLE MOOD. CALM AND INTERACTIVE WITH PEERS AND STAFF. NO HALLUCIANTIONS OR DELUSIONS NOTED. NO SI/HI NOTED. FALL PRECAUTION MAINTAINED. MEDICATION COMPLAINT WITHOUT DIFFICULTY. MEDICATION EDUCATION PROVIDED AND VERBALIZED UNDERSTANDING. NO COMBATIVE BEHAVIORS NOTED. BEHAVIORS MONITORED WITH Q15 MINUTE CHECKS. NAPPED BETWEEN MEALS. SEE [facility] FLOWSHEET FOR SPECIFIC MONITORING.
[2019-06-11 20:00] VITALS: BP 124/86
--- NOTE | 2019-06-11 21:48 | NUR ---
Patient alert and oriented to person and place with confusion. Memory deficits noted. No signs of any hallucinations noted at this time. Patient repeats same conversation continuously. Patient compliant with medications without any difficulty. Patient isolative in her room during snack time. Patient pleasant and cooperative. Provided 1:1 for emotional support. Redirected/reoriented when needed/appropriate. Plan to continue to encourage medication compliance and continue to provide emotional support.Continue to encourage interaction with staff and other patients and continue to redirect/reorient when needed/appropriate. Q 15 minute safety checks continued and maintained. See [facility] [[email or web address]] flowsheet for further documentation.
--- NOTE | 2019-06-12 04:48 | NUR ---
PT SLEEPING IN BED SINCE 2229 SOLID, PT WAS SLEEPING IN HER ROOM AT START OF SHIFT UNTIL, AWAKENED FOR HOC AND MEDICATIONS.
--- NOTE | 2019-06-12 07:10 | NUR ---
Occupational Therapy Treatment Note- Patient was seen this date for 15 minutes for occupational therapy treatment. Patient was in the dining room upon OT and PATROL COMMANDER arrival, and patient was agreeable to OT treat. PATROL COMMANDER was with OTR for treatment. Patient performed functional sit/stand from her wheelchair with Min Ax2. Patient ambulated to bathroom with Min A for balance with CLAIMS ACCOUNT MANAGER. In the bathroom, patient educated on using grab bar during toilet transfer for increased safety, patient had good carryover of education. Patient was able to complete clothing management for toileting with verbal cues for sequencing. Patient performed functional mobility with Min Ax2 to the sink to complete grooming task. At sink, patient washed hands with verbal cues for completion of task. Patient easily distracted this date. Patient performed function sit/stand to wheelchair with hand over hand assist for proper hand placement during the transfer. Patient concluded treatment with functional mobility in hallway with PATROL COMMANDER. OT treatment concluded with patient in wheelchair in dining room in preparation for breakfast. Patient would benefit from continued OT treatment to max I and safety in ADLs and functional mobility/transfers. Whitney Tomlinson, SAMR/L
--- NOTE | 2019-06-12 07:10 | NUR ---
PHYSICAL THERAPY Patient seen this am for therapy visit and was sitting up in activity room w/c upon therapist arrival. OT was present for observation only during HISTORICAL RECORDS ADMINISTRATOR visit as patient transfers sit to stand CGA amd ambulates FINANCIAL PLANNING ASSISTANT/MIN, 20'x 1, 30'x 1, demonstrating decreased stride, decreased upright posture. Patient was very talkative and pleasant this morning and returned to activity room w/c awaiting breakfast with body alarm under [facility] staff Supervision. Will continue per POC as tolerated, total treatment time 16 minutes. Indra Menendez, HISTORICAL RECORDS ADMINISTRATOR
[2019-06-12 07:48] VITALS: BP 137/81
--- NOTE | 2019-06-12 08:06 | NUR ---
Patient resting quietly with no c/o discomfort. Respirations easy and regular. Vital signs stable. No overt distress. DR. SEBASTIAN ON UNIT. UPDATE GIVEN. TODD GANT
--- NOTE | 2019-06-12 08:30 | NUR ---
Treatment Plan meeting with Dr. Mei, RN, AT, and Delinquent Tax Collector. Plan for discharge Wednesday. Pt. will return to [facility] at Discharge.
--- NOTE | 2019-06-12 10:47 | NUR ---
Clinical Updates faxed to [facility].
--- NOTE | 2019-06-12 11:32 | NUR ---
AM GROUP PT ATTENDED [facility] GROUP THERAPY AND PARTICIPATED IN THE LIGHT THERAPY AND BY SOCIALIZING. PT ASKS THE SAME QUESTIONS OVER AND OVER. PT IS PLEASANT AND EXHIBITS NO AGITATION OR AGGRESSION.
--- NOTE | 2019-06-12 12:57 | NUR ---
Shift chart check completed.
--- NOTE | 2019-06-12 13:17 | NUR ---
NO ADVERSE MOODS OR BEHAVIORS NOTED THIS SHIFT. PT REMAINS AT BASELINE CONFUSION WITH ST/LT MEMORY DEFICITS. PT ALERT TO PERSON ONLY. MEDICATION COMPLIANT WITH NO DIFFICULTIES. PATIENT INTERACTIVE WITH PEERS, ATTEND/PARTICIPATE IN GROUP THERAPIES. EATING AND DRINKING ADEQUATELY. MOOD STABLE AND PLEASANT. DENIES HALLUCINATINS, SI/HI, OR PAIN. NO S/S OF INTERACTING WITH INTERNAL STIMULI. NO DELUSIONAL THOUGHT PROCESS NOTED. NO S/S OF DISTRESS NOTED. RESPS EVEN AND UNLABORED ON ROOM AIR. MAKES NEEDS KNOWN. UTILIZE WHEELCHAIR DUE TO UNSTEADY GAIT. ONE ASSIST WITH TRANSFERING, ADLS, AND CARE. MIDLINE TO L UPPER ARM REMAINS INTACT, FLUSH FOR PATENCY. FALLING STAR PROGRAM IN PLACE. Q15 MINUTE CHECKS MAINTAINED FOR SAFETY.
--- NOTE | 2019-06-12 14:09 | NUR ---
Pt was pleasant with this senior technical writer during interaction late this AM. Observed pt interacting with another patient also. Short-term memory deficit noted as pt reasked the same question multiple times. No hallucinations or delusions noted being voiced by patient.
--- NOTE | 2019-06-12 14:30 | NUR ---
DR. WOMACK ON FLOOR TO ASSESS PT, UPDATE PROVIDED. STATED IT WAS OKAY TO TAKE OUT PATIENTS MIDLINE TO L UPPER ARM.
--- NOTE | 2019-06-12 15:32 | NUR ---
PM GROUP/LEISURE INTERESTS PT ATTENDED AFTERNOON GROUP THERAPY AND PARTICIPATED BY OBSERVING AND SOCIALIZING. PT IS PLEASANTLY CONFUSED. PT EXHIBITED NO AGITATION OR AGGRESSION WHILE IN GROUP.
--- NOTE | 2019-06-12 17:48 | NUR ---
MIDLINE TO L UPPER ARM AND DRESSING DISCONTINUED AT THIS TIME PER DR. WOMACK'S ORDER. CATHETER TIP INTACT AND MEASURING 11CM. PRESSURE DRESSING APPLIED. PATIENT TOLERATED PROCEDURE WELL.
[2019-06-12 19:44] VITALS: BP 140/78
--- NOTE | 2019-06-12 20:38 | NUR ---
EVENING/RELAXTION/DISCUSSION PT ATTENDED AND PARTICIPATED BY SOCIALIZING WITH PEERS AND STAFF. PT PLEASANT AND ON TASK WITH NO AGITATION OR ANXIETY EXPRESSED AT THIS TIME. PT WILL CONTINUE TO ATTEND AND PARTICIPATE TO BEST OF ABILITY IN FUTURE GROUP SESSIONS.
--- NOTE | 2019-06-12 21:13 | NUR ---
Patient alert and oriented to person and place with confusion. Memory deficits noted. No signs of any hallucinations noted at this time. Patient repeats same conversation continuously. Patient compliant with medications without any difficulty. Patient in dining room for snack time and interacting with staff and other patients. Patient pleasant and cooperative. Provided 1:1 for emotional support. Redirected/reoriented when needed/appropriate. Plan to continue to encourage medication compliance and continue to provide emotional support.Continue to encourage interaction with staff and other patients and continue to redirect/reorient when needed/appropriate. Q 15 minute safety checks continued and maintained. See [facility] flowsheet for further documentation.
--- NOTE | 2019-06-13 00:13 | NUR ---
24 HR chart check completed.
--- NOTE | 2019-06-13 05:16 | NUR ---
Patient slept approx 7 1/2 hours throughout shift. Q 15 minute safety checks continued and maintained.
--- NOTE | 2019-06-13 07:00 | NUR ---
PHYSICAL THERAPY Patient seen this am for therapy visit and was sitting at table in w/c at activity room upon therapist arrival. OT assistant child care teacher was present for observation only during CASHIER ASSISTANT visit this morning and patient reports no new c/o's. Patient transfers sit to stand with MIN A and ambulates 20'x 1 from hallway door to bathroom, SLIP DUMPER/MIN, demonstrating antalgic gait pattern. Patient c/o of R knee pain but was unable to place a pain scale number on it. Patient able to return 10' x 1 to w/c outside bathroom, demonstrating unsteady gait pattern and decreaed stride. Following brief seated rest, patient completed seated B LE therex, all planes x 10 reps each without c/o, but was limited in R knee extension secondary to mild pain c/o. Patient remained in w/c with body alarm and returned to activity room awaiting breakfast under [facility] staff Supervision. Will continue per POC as tolerated, total treatment time 23 minutes. Indra Menendez, CASHIER ASSISTANT
--- NOTE | 2019-06-13 07:20 | NUR ---
OT NOTE PATIENT SEATED IN W/C AT TABLE UPON ARRIVAL AND IDENTIFIED BY NAME AND DATE OF . PATIENT ABLE TO COMPLETE TOILET TRANSFER WITH ANNEALING OPERATOR X2. MIN A REQUIRED FOR CLOTHING MGMT. CGA TO COMPLETE HAND WASHING SINK SIDE. PATIENT STATED PAIN IN LLE AND SHORTNESS OF BREATH AFTER COMPLETING TOILETING TASKS. PATIENT ENDED 15 MINUTE SESSION SEATED IN W/C WITH BODY ALARM ACTIVE.
[2019-06-13 07:26] VITALS: BP 132/82
--- NOTE | 2019-06-13 08:30 | NUR ---
Treatment Plan meeting with Dr. Mei, RN, AT, and Plush Brusher. Plan for discharge tommorow. Pt. will return to [facility] at discharge.
--- NOTE | 2019-06-13 09:33 | NUR ---
Shift chart check completed.
--- NOTE | 2019-06-13 10:11 | NUR ---
DR. WOMACK ON FLOOR TO ASSESS PT, UPDATE PROVIDED.
--- NOTE | 2019-06-13 11:49 | NUR ---
AM GROUP/COPING WITH ANXIETY PT ATTENDED MORNING GROUP THERAPY AND PARTICIPATED IN THE GROUP DISCUSSION. PT IS PLEASANTLY CONFUSED AND WAS VERY DROWSY DURING GROUP. PT EXHIBITED NO AGITATION OR ANXIETY WHILE IN GROUP
--- NOTE | 2019-06-13 12:15 | NUR ---
Spoke with Pt. legal Guardian and advised that patient will discharge tommorow. Transportation via ambulance arranged with Legal Guardian Approval. [facility] Amb[facility] to transport with mixing picker tender time 12:30 p.m.
--- NOTE | 2019-06-13 12:47 | NUR ---
NO ADVERSE MOODS OR BEHAVIORS NOTED THIS SHIFT. PATIENT REMAINS AT BASELINE CONFUSION, ALERT TO PERSON ONLY. ST/LT MEMORY DEFICITS NOTED. MOOD STABLE AND PLEASANT. DENIES HALLUCINATIONS, SI/HI, OR PAIN. NO S/S OF INTERACTING WITH INTERNAL STIMULI. NO DELUSIONAL THOUGHT PROCESS NOTED. NO S/S OF DISTRESS NOTED. RESPS EVEN AND UNLABORED ON ROOM AIR. MEDICATION COMPLIANT WITH EDUCATION PROVIDED ON EACH. ATTENDING AND PARTICIPATING IN GROUP THERAPIES. INTERACTIVE WITH PEERS AND STAFF. MAKES NEEDS KNOWN. UTILIZE WHEELCHAIR DUE TO UNSTEADY GAIT. ONE ASSIST WITH ADLS, CARE AND TRANSFERING. FALLING STAR PROGRAM IN PLACE. Q15 MINUTE CHECKS MAINTAINED FOR SAFETY.
--- NOTE | 2019-06-13 17:27 | NUR ---
PHYSICAL THERAPY CO-SIGN I approve of the Physical Therapy notes written above. BRONWYN MARS PT,DPT
[2019-06-13 19:24] VITALS: BP 130/78
--- NOTE | 2019-06-14 01:58 | NUR ---
NO ADVERSE BEHAVIORS NOTED SO FAR THIS SHIFT. PATIENT ALERT AND ORIENTED TO SELF WITH CONFUSION PER PT'S BASELINE. PT CALM, PLEASANT, AND INTERACTIVE. MOOD STABLE. MEDICATION COMPLIANT WITHOUT DIFFICULTY, UNABLE TO EDUCATE DUE TO COGNITION. PT DENIES SI/HI AND HALLUCINATIONS, NO NOTED RESPONDING TO INTERNAL STIMULI. NO PARANOIA/DELUSIONS OBSERVED. PT COMPLIANT WITH HANDS ON CARE, ABLE TO MAKE NEEDS KNOWN. NO AGGRESSION OR AGITATION NOTED. PT CURRENTLY LAYING DOWN WITH EYES CLOSED, RESPIRATIONS EASY AND REGULAR, NO SIGNS OR SYMPTOMS OF DISTRESS NOTED. PLAN IS TO CONTINUE TO MONITOR MOOD AND BEHAVIORS. REORIENT AND REDIRECT NEEDED. PROVIDE 1:1 FOR VENTILATION OF FEELINGS. ENCOURAGE MEDICATION COMPLIANCE AND EDUCATE. MAINTAIN Q 15 MIN CHECKS.
--- NOTE | 2019-06-14 03:57 | NUR ---
24 HOUR CHART CHECK COMPLETED.
--- NOTE | 2019-06-14 06:05 | NUR ---
PATIENT OBSERVED ON Q 15 MIN CHECKS TO HAVE SLEPT THROUGHOUT THE NIGHT WITH NO AWAKENINGS OR SIGNS AND SYMPTOMS OF DISTRESS NOTED.
--- NOTE | 2019-06-14 07:15 | NUR ---
OT NOTE Patient was seen this date for 1:1 Occupational therapy treatment. Patient was agreeable to OT treatment. Patient was in her wheelchair in the dining room upon arrival. PATIENT REGISTRATION CLERK was with OT for entire treatment. Patient was A&O to self only, and she was re-oriented to place and time. Patient was educated on safe wheelchair use of locking brakes prior to functional sit/stand. Patient had good carryover of education. Patient performed functional mobility from doorway of room into bathroom with Min A, with an unsteady gait. Patient completed a toilet transfer with Min A with grab bar use. Patient able to complete clothing management with Min A with verbal cues for sequencing of task. Patient required a rest break after clothing management due to increased fatigue. Patient performed second functional sit/stand followed by mobility to the sink with Min Ax2 with SITE CONTROLLER. Patient performed grooming task at the sink with verbal cues for completion of task. Patient returned to wheelchair for further balance and mobility treatment with PATIENT REGISTRATION CLERK in the hallway. OT treatment concluded with patient in her wheelchair with chair alarm on in the dining room. Patient would benefit from continued OT treatment to maximize independence in ADLs and functional mobility/transfers. Patient was seen for a total of 15 minutes. NIALL Keating/L
--- NOTE | 2019-06-14 07:15 | NUR ---
PHYSICAL THERAPY Patient seen this am for therapy visit and was sitting in her w/c at table in activity room upon therapist arrival. OTR was present for observation only during PIGMENT PRESSER visit as patient reports no new c/o's at this time. Patient was very pleasant, transfering sit to stand with MIN A and ambulates BAR TACKER SEWING MACHINE/MIN, 25'x 1, demonstrating slow, uneven stride. Patient experienced mild R knee buckle and c/o of 5/10 medial knee pain and needed a seated rest break with w/c follow during gait. Patient able to continue ambulation additional 20'x 1, BAR TACKER SEWING MACHINE/MIN, demonstrating antalgic gait pattern and returned to her w/c in activity room with body alarm, under [facility] staff Supervision. Will continue per POC as tolerated, total treatment time 17 minutes. Indra Menendez, PIGMENT PRESSER
--- NOTE | 2019-06-14 08:00 | NUR ---
Treatment plan meeting with Dr. Mei RN, AT, and [employer]. Plan for discharge today. Pt. to return to [facility]. Transportation arranged with [facility] to transport with picker tender helper time 12:30 p.m.
[2019-06-14 08:08] VITALS: BP 155/71
[2019-06-14] MEDS ORDERED: DIVALPROEX SOD500 MG PO (09:15)
[2019-06-14] MEDS ORDERED: MEMANTINE HCL10 MG PO (09:15)
[2019-06-14] MEDS ORDERED: EXELON13.3 MG/21 T (09:15)
--- NOTE | 2019-06-14 09:44 | NUR ---
spoke with dr. espitia regarding pt discharge. states he is in building and will be in to see her shortly.
--- NOTE | 2019-06-14 10:40 | NUR ---
Discharge Paperwork Faxed to [facility].
--- NOTE | 2019-06-14 11:55 | NUR ---
[facility] PT ATTENDED AND PARTICIPATED IN MORNING GROUP THERAPY. PT IS PLEASANTLY CONFUSED. PT EXPRESSED NO AGITATION OR AGGRESSION WHILE IN GROUP. PT IS SET TO BE DISCHARGED FROM THE UNIT THIS AFTERNOON.
--- NOTE | 2019-06-14 13:10 | NUR ---
pt discharged off unit at this time via cart to [facility] ambulance and two attendants. escorted by security. all belongings and paperwork sent with patient and attendants. nurse to nurse report called to "brandy" at [facility]. pt smiling, alert, pleasant.
--- NOTE | 2019-06-14 13:32 | NUR ---
Met with pt this AM prior to her discharge. Pt was pleasant but with short-term memory loss. Pt stated that she was looking forward to returning to her home at the . Pt was also pleasant with another patient.
--- NOTE | 2019-06-14 13:33 | NUR ---
Patient discharged to [facility] today. Follow-up will be with Dr Nieves, visiting psychiatrist. Pt's behaviors improved while at [facility]. Pt was pleasant and cooperative with staff and her peers. Pt continued to be pleasantly confused upon discharge.
--- NOTE | 2019-06-15 10:10 | NUR ---
OCCUPATIONAL THERAPY CO-SIGN I approve of the Occupational Therapy notes written above. PRADEEP HOGAN OTR/Effie
--- NOTE | 2019-06-16 07:45 | NUR ---
PHYSICAL THERAPY CO-SIGN I approve of the Physical Therapy notes written above. BRONWYN MARS PT, DPT
== END 2019-06-14 13:11 | disposition other institution (70) | DRG 883 ==
LOC: 3N 05:10
PROVIDERS: Internal Medicine; ADMIT Psychiatry & Neurology Psychiatry
DX: F63.81 Intermittent explosive disorder (principal); N39.0 Urinary tract infection, site not specified; F02.80 Dementia in other diseases classified elsewhere, unspecified severity, without behavioral disturbance, psychotic disturbance, mood disturbance, and anxiety; I10 Essential (primary) hypertension; K21.9 Gastro-esophageal reflux disease without esophagitis; E03.9 Hypothyroidism, unspecified; K59.09 Other constipation; G30.1 Alzheimer's disease with late onset; F51.01 Primary insomnia; B36.8 Other specified superficial mycoses; E55.9 Vitamin D deficiency, unspecified; F31.9 Bipolar disorder, unspecified; R62.7 Adult failure to thrive; F41.1 Generalized anxiety disorder; J43.2 Centrilobular emphysema; Z68.29 Body mass index [BMI] 29.0-29.9, adult; Z86.73 Personal history of transient ischemic attack (TIA), and cerebral infarction without residual deficits; Z87.440 Personal history of urinary (tract) infections